=== PATIENT | male | born 1990 | race Caucasian/White ===

== ENCOUNTER → 2021-08-12 07:48 | Outpatient (BNVA) | payer MEDICAID, SELFPAY | PROVIDERS: PCP Nurse Practitioner; Referring Provider Nurse Practitioner; Visit Provider Internal Medicine Gastroenterology ==

== ENCOUNTER 2021-09-13 10:31 | Day surgery (SDC) | payer MEDICAID, SELFPAY ==
[2021-09-07 15:08] VITALS: BMI 34.2
[2021-09-08 14:56] VITALS: BMI 33.4
--- NOTE | 2021-09-10 09:16 | HO.ANESPROP2 ---
Documented by User: Leta Adams NP 09/10/21 09:17 HPI - Anesthesia Eval Consult details Narrative: 30yo M for Upper Endoscopy [facility] Active Problems Active Problems: All Active Problems (Updated 09/08/21 @ 14:55 by Sherin Mcwilliams RN) Hypertension (Acute) GERD (gastroesophageal reflux disease) (Acute) PTSD (post-traumatic stress disorder) (Acute) Anxiety (Acute) Depression (Acute) Past Medical History Medical History Anxiety and depression GERD (gastroesophageal reflux disease) History of esophageal cancer Hypertension PTSD (post-traumatic stress disorder) Family History Family History Maternal Grandmother Diabetes Mother Chronic mental illness Surgical History Surgical History History of esophageal surgery History of esophagogastroduodenoscopy (EGD) Social History Social History Alcohol intake: current Alcohol intake frequency: holidays/special occasions only Patient Tobacco Use Status: Never used Tobacco Use of substances other than those prescribed or required for medical reasons: Yes Substance Use Frequency: Occasionally Have you been hit, kicked, punched, or otherwise hurt by someone within the past year? If so, by whom?: No Are you DNR?: No Advance Directives: No Advance Directives Information Provided: Yes Advance Directives on File: No Meds Allergies Allergy/AdvReac Type Severity Reaction Status Date / Time No Known Allergies Allergy Verified 09/08/21 14:55 Home Medications Medication Instructions Recorded Confirmed Last Taken Type amlodipine 5 mg tablet 5 mg PO DAILY 08/12/21 09/08/21 Unknown History omeprazole 20 mg capsule,delayed 20 mg PO DAILY PRN 09/08/21 09/08/21 Unknown History release Exam Exam Date and Time: September 10, 2021 0916 Height,Weight and Vital Signs: Height 5 ft 8 in Weight 99.79 kg Assessment and Plan Assessment Anesthesia Assessment: Chart Reviewed Documented by User: Becky Larson MD 09/13/21 11:43 PMFSH Past Medical History Medical History Anxiety and depression GERD (gastroesophageal reflux disease) History of esophageal cancer Hypertension PTSD (post-traumatic stress disorder) Family History Family History Maternal Grandmother Diabetes Mother Chronic mental illness Surgical History Surgical History History of esophageal surgery History of esophagogastroduodenoscopy (EGD) History of Problems with Anesthesia: No Social History Social History Alcohol intake: current Alcohol intake frequency: holidays/special occasions only Patient Tobacco Use Status: Never used Tobacco Use of substances other than those prescribed or required for medical reasons: Yes Substance Use Frequency: Occasionally Have you been hit, kicked, punched, or otherwise hurt by someone within the past year? If so, by whom?: No Are you DNR?: No Advance Directives: No Advance Directives Information Provided: Yes Advance Directives on File: No Meds Allergies Allergy/AdvReac Type Severity Reaction Status Date / Time No Known Allergies Allergy Verified 09/08/21 14:55 Home Medications Medication Instructions Recorded Confirmed Last Taken Type amlodipine 5 mg tablet 5 mg PO DAILY 08/12/21 09/08/21 Unknown History omeprazole 20 mg capsule,delayed 20 mg PO DAILY PRN 09/08/21 09/08/21 Unknown History release Exam Airway Mallampati Class: III TM Dist: >3cm Neck ROM: Full Loose/Missing/Broken Teeth: No Heart: RRR Lungs: CTA Assessment and Plan Assessment Anesthesia Assessment: Anesthesia Plan Discussed Final Anesthetic Review History of Problems with Anesthesia: No NPO: Yes ASA Class: II Final Preanesthetic Review: Meds/Allgs Chart Reviewed, Consent Obtained/Reviewed and Anes Risks/Benef Reviewed Patient Risk: Low Procedure Risk: Intermediate Anesthetic Plan Anesthetic Plan: MAC: Disposition: Standard PACU
--- NOTE | 2021-09-13 10:55 | MHC.SHP ---
Pre-Procedural Eval Section A Date of Service: 09/13/21 The patient is an INPATIENT: No The History & Physical has been completed within 30 days and I have reviewed it.: No Section B Chief Complaint: GERD Details of Present Illness: GERD, ? hx of esophageal cancer Relevant Family History (Specify if Yes): No Relevant Social History: None Present Medications: see Short Stay Collaborative assessment Medical History: Significant History (Anxiety and depression GERD (gastroesophageal reflux disease) History of esophageal cancer Hypertension PTSD (post-traumatic stress disorder)) History of Previous Operations: Relevant previous surgery/procedure and date(s) (History of esophageal surgery History of esophagogastroduodenoscopy (EGD)) Allergies: Allergies Allergy/AdvReac Type Severity Reaction Status Date / Time No Known Allergies Allergy Verified 09/08/21 14:55 Review of Systems Sugical H&P ROS: Negative: Constitution, Cardiovascular and Respiratory and Yes, Specify: Gastrointestinal (GERD) Exam Surgical H&P Exam: Normal: Heart, Normal: Lungs, Normal: Extremities and Normal: Abdomen Plan Diagnosis/Plan: Unchanged I have reviewed the history and physical and performed a pertinent physical examination on my patient. No changes have occurred unless specified.
[2021-09-13 11:25] VITALS: BP 154/109; PULSE 71; RESP 18; TEMP 36.8; O2SAT 100
[2021-09-13] MEDS: Lactated Ringers 1,000 ML 100 ML IVCONT (11:45)
--- NOTE | 2021-09-13 11:47 | P.OP_ITS ---
Operative Note Operative Note Date of Service: 09/13/21 Narrative: Pre-op diagnosis: GERD, ? hx of esophageal ca in childhood Post-op diagnosis:?other (GERD, hiatal hernia, gastritis) Procedure: FLEXIBLE TRANSORAL UPPER GASTROINTESTINAL ENDOSCOPY WITH BIOPSIES Consent:?Indications for the procedure and potential complications of bleeding, perforation, reaction to medications and missed diagnosis were discussed with the patient and informed consent was obtained. Instrument:?Olympus GIF H 190 mid size upper endoscope Monitoring: Vital signs and clinical assessment, continuous EKG monitoring, Pulse oximetry, Carbon Dioxide monitoring and blood pressure monitoring were done throughout the procedure. Procedure:?The patient was placed in the left lateral decubitis position and pre-procedure medications were administered and a bite block was placed. The endoscope was inserted into the mouth and advanced under direct vision to the third part of duodenum. A careful inspection was made as the upper endoscope was withdrawn including a retroflexed examination of the proximal stomach; Findings and interventions are described below. Findings: Larynx:? Normal Esophagus: GE junction at 34 cms, small hiatal hernia 34 to 36 cms. Focal healong esophagitis at GE junction. Stomach: Mild gastric erythema. Biopsies were obtained. Grade 2 flap valve on retroflexed examination of the cardia. Duodenum: Normal bulb and descending duodenum Intervention: Biopsies as noted above Impression and Post Procedure Diagnosis: Endoscopy Findings: ESOPHAGUS:? GE junction at 34 cms, small hiatal hernia 34 to 36 cms. Focal healong esophagitis at GE junction. STOMACH:? Mild gastritis - biopsied to check for H Pylori. No evidence of past esophageal surgery or esophageal cancer. (Its possible that pt had a benign papilloma which was removed). Plan: Await pathology results Patient has an appointment on 12/09/21 in the GI Clinic with Alyssa Young M.D. Continue Omeprazole 20 mg daily Above findings were reviewed with the patient and GERD and Hiatal Hernia handouts were given in the discharge area Surgeon: Alyssa Young MD Anesthesia:?MAC (Dr Larson) Was an Sr. Operations Manager used for this Procedure?:?Yes Sr. Operations Manager:?Jose Jones Estimated blood loss (mL):?0 Pathology:?other ( A- ANTRAL BIOPSIES-? H.PYLORI) Condition:?stable Disposition:?PACU
[2021-09-13 12:07] VITALS: BP 141/88; PULSE 98; RESP 18; TEMP 36.8; O2SAT 98
[2021-09-13 12:22] VITALS: BP 141/97; PULSE 81; RESP 18; TEMP 36.7; O2SAT 97
== END 2021-09-13 12:57 | disposition home or self-care (01) ==
PROVIDERS: PCP Nurse Practitioner; Visit Provider Internal Medicine Gastroenterology
PROC: 0DJ08ZZ Inspection of Upper Intestinal Tract, Via Natural or Artificial Opening Endoscopic (ICD-10-PCS; CPT 43235; principal; 2021-09-13 12:00)
DX: K21.9 Gastro-esophageal reflux disease without esophagitis (principal); K29.50 Unspecified chronic gastritis without bleeding; K20.80 Other esophagitis without bleeding; K44.9 Diaphragmatic hernia without obstruction or gangrene; Z85.01 Personal history of malignant neoplasm of esophagus; E66.9 Obesity, unspecified; Z68.34 Body mass index [BMI] 34.0-34.9, adult; Z79.899 Other long term (current) drug therapy
CPT/HCPCS: 43239; 88305; 88342

== ENCOUNTER → 2021-12-09 12:31 | Outpatient (BNVA) | payer MEDICAID, SELFPAY | PROVIDERS: PCP Nurse Practitioner; Referring Provider Nurse Practitioner; Visit Provider Internal Medicine Gastroenterology | DX: K21.9 Gastro-esophageal reflux disease without esophagitis (principal) | CPT/HCPCS: 99212 ==

== ENCOUNTER 2022-12-08 11:49 | Outpatient (REF) | payer MEDICAID, SELFPAY ==
[2022-12-08 12:59] LABS: Hematocrit 41.6 % (42.0-52.0); Hemoglobin 13.8 g/dl (14.0-18.0); Mean Corpuscular HGB Conc 33.2 g/dl (31.0-36.0); Mean Corpuscular Hemoglobin 28.3 pg (27.0-33.0); Mean Corpuscular Volume 85.4 fL (80.0-98.0); Mean Platelet Volume 11.5 fL (9.4-12.4); Platelet Count 217 X10*3/uL (160-400); Red Blood Count 4.87 X10*6/uL (4.60-5.80); Red Cell Distribution Width 12.4 % (11.0-16.0); White Blood Count 7.1 X10*3/uL (4.8-10.8)
[2022-12-08 13:00] LABS: Prothrombin Time 11.2 SEC (10.0-13.1)
[2022-12-08 13:29] LABS: Alanine Aminotransferase 21 U/L (0-40); Albumin Level 4.4 g/dL (3.5-5.0); Alkaline Phosphatase 81 U/L (39-117); Aspartate Amino Transferase 15 U/L (5-37); Bilirubin Direct 0.3 mg/dL (0.0-0.5); Estimated Glomerular Filt Rate > 60; Total Protein 6.8 g/dL (6.5-8.0)
[2022-12-08 14:00] LABS: Folate 16.8 ng/mL (> or = 4.0); Vitamin B12 186 pg/mL (200-900); Vitamin D 25-OH Total 26.3 ng/mL (>30)
[2022-12-09 08:23] LABS: HBS Num1 59.99 mIU/mL (0-7.99); HBc Num1 0.14 S/CO (0.00-0.79); HBsAGNum1 0.33 S/CO (0.00-0.99); Hepatitis B Core Antibody Nonreactive (Nonreactive); Hepatitis B Surface Antigen Negative (Negative); ~HepC Num1 0.41 S/CO (0.00-0.79); ~Hepatitis B Surface Antibody REACTIVE (Nonreactive); ~Hepatitis C Antibody Nonreactive (Nonreactive)
== END 2022-12-08 11:50 | disposition home or self-care (01) ==
LOC: HO.LAB 11:49
PROVIDERS: PCP Nurse Practitioner; Visit Provider Internal Medicine Gastroenterology
DX: K21.9 Gastro-esophageal reflux disease without esophagitis (principal); R79.89 Other specified abnormal findings of blood chemistry; E66.9 Obesity, unspecified; Z79.899 Other long term (current) drug therapy
CPT/HCPCS: 36415; 80076; 82306; 82565; 82607; 82746; 85027; 85610; 86704; 86706; 86803; 87340; 99212

== ENCOUNTER 2022-12-30 10:48 | Outpatient (REF) | payer MEDICAID, SELFPAY ==
--- NOTE | ~2022-12-30 | US_ITS ---
EXAMINATION: US ABDOMEN COMPLETE CLINICAL INFORMATION: Unspecified abnormal findings of blood chemistry. COMPARISON: None available. TECHNIQUE: Real-time imaging of the abdominal viscera. FINDINGS: PANCREAS: Pancreas is limited for evaluation, obscured by bowel gas ABDOMINAL AORTA: The proximal, mid, and distal segments are normal in caliber. INFERIOR VENA CAVA: Visualized portions are normal. LIVER: The liver is normal in size. The liver contour is normal. There is 1.7 x 1.4 x 2.2 cm echogenic lesion consistent with hemangioma in the right lobe of the liver . There is no intrahepatic biliary duct dilatation seen. GALLBLADDER: No calculi seen but small foci of mobile debris. The gallbladder is physiologically distended without evidence of stones, sludge, polyps, wall thickening or pericholecystic fluid. COMMON BILE DUCT: Normal in caliber measuring 0.3 cm in diameter. RIGHT KIDNEY: Normal. No hydronephrosis. No renal calculi or focal parenchymal lesions. The kidney measures 12.0 cm in maximum dimension. LEFT KIDNEY: Normal. No hydronephrosis. No renal calculi or focal parenchymal lesions. The kidney measures 12.2 cm in maximum dimension. SPLEEN: Normal. The spleen measures 11.8 cm in maximum dimension. FREE FLUID: None. US/US abdomen complete IMPRESSION: 1. Hemangioma in the right lobe of the liver. 2. Small foci of mobile debris in the gallbladder. 3. Limited evaluation of pancreas.
== END 2022-12-30 10:49 | disposition home or self-care (01) ==
LOC: HO.US 10:48
PROVIDERS: PCP Registered Nurse; Visit Provider Internal Medicine Gastroenterology
DX: K21.9 Gastro-esophageal reflux disease without esophagitis (principal); R79.89 Other specified abnormal findings of blood chemistry
CPT/HCPCS: 76700

== ENCOUNTER 2023-03-03 15:42 | Outpatient (REF) | payer MEDICAID, SELFPAY ==
[2023-03-03 18:09] LABS: Alanine Aminotransferase 15 U/L (0-40); Albumin Level 4.4 g/dL (3.5-5.0); Alkaline Phosphatase 76 U/L (39-117); Anion Gap 13 (12-20); Aspartate Amino Transferase 12 U/L (5-37); Bilirubin Total 0.8 mg/dL (0.0-1.0); Blood Urea Nitrogen 17 mg/dL (9-16); Calcium 9.6 mg/dL (8.4-10.2); Carbon Dioxide 23 mmol/L (22-29); Chloride 106 mmol/L (96-108); Estimated Glomerular Filt Rate > 60; Glucose Random 85 mg/dL (60-115); Potassium 3.8 mmol/L (3.3-5.1); Sodium 138 mmol/L (135-145); Total Protein 7.2 g/dL (6.5-8.0)
== END 2023-03-03 15:43 | disposition home or self-care (01) ==
LOC: HO.HHCL 15:42
PROVIDERS: Visit Provider Registered Nurse
DX: I10 Essential (primary) hypertension (principal)
CPT/HCPCS: 36415; 80053

== ENCOUNTER 2023-04-07 12:16 | Outpatient (REF) | payer MEDICAID, SELFPAY ==
[2023-04-13 14:43] LABS: Metanephrine, Free 40 pg/mL (<=57); Normetanephrines, Free 90 pg/mL (<=148); Total Metanephrine, Free 130 pg/mL (<=205)
[2023-04-14 17:58] LABS: Aldosterone/Renin Ratio 1.6 Ratio (0.9-28.9); Plasma Renin Activity 1.88 ng/mL/h (0.25-5.82)
[2023-04-15 14:13] LABS: Cortisol, Free 0.36 mcg/dL
[2023-04-15 14:38] LABS: Renin 1.48 ng/mL/h (0.25-5.82)
[2023-04-25 16:04] LABS: Catecholamine Frac, Total 505 pg/mL
== END 2023-04-07 12:17 | disposition home or self-care (01) ==
LOC: HO.HHCL 12:16
PROVIDERS: Visit Provider Registered Nurse
DX: I10 Essential (primary) hypertension (principal)
CPT/HCPCS: 36415; 82088; 82384; 82530; 83835; 84244; 84443

== ENCOUNTER 2023-06-13 | Outpatient (REF) | payer MEDICAID, SELFPAY | END 2023-06-13 00:01 | disposition home or self-care (01) | LOC: HO.HHCLNP | PROVIDERS: Visit Provider Nurse Practitioner Family | DX: R30.9 Painful micturition, unspecified (principal) | CPT/HCPCS: 87086 ==

== ENCOUNTER 2023-07-19 09:21 | Outpatient (REF) | payer OTHER, SELFPAY ==
--- NOTE | ~2023-07-19 | CT_ITS ---
EXAMINATION: CT UROGRAM WITHOUT AND WITH CONTRAST CLINICAL INFORMATION: Gross hematuria. COMPARISON: No pertinent prior examinations are available for comparison. TECHNIQUE: Noncontrast helical scanning was performed with submillimeter collimation through the abdomen and pelvis. Postcontrast helical scanning was then repeated with submillimeter collimation through the abdomen and pelvis in the pyelographic/urographic phase using split dose technique with 85 mL of Omnipaque 350 intravenous contrast. Sagittal and coronal 2-D reconstructions were obtained. 3D POSTPROCESSING: Multiple 3-D volumetric and CPR images were processed from the initial data set by the [facility] on an independent workstation under concurrent physician supervision. This CT examination was performed using dose optimization techniques as appropriate, variously including the following: *Automated exposure control *Adjustment of mA and/or kV according to patient size (this includes techniques or standardized protocols for targeted exams where dose is matched to indication/reason for exam; i.e. extremities or head) *Use of iterative reconstruction technique DLP: 837 mGycm FINDINGS: KIDNEYS, URETERS, BLADDER: Specific attention was given to the kidneys, ureters, and bladder. The right kidney measures 11.1 cm in size and the left kidney measures 12.0 cm in size. NONCONTRAST: No radiopaque nephrolithiasis. POSTCONTRAST NEPHROGRAPHIC/UROGRAPHIC: Symmetric contrast enhancement. Symmetric urinary excretion. No focal bladder mass. The collecting systems appear normal. No hydroureteronephrosis. BLADDER: Contrast layering artifact in the urinary bladder. No discrete bladder mass or focal bladder thickening. PELVIC VISCERA: Prostate appears normal. OTHER: LUNG BASES: The visualized lung bases are unremarkable. LIVER, GALLBLADDER, AND BILIARY TREE: Nonspecific hypodense nonsimple lesion in the medial aspect of segment 6 along Morison's pouch. Most likely hemangioma but this is not definite by imaging as this protocol is not adequate for liver lesion evaluation. Otherwise the liver appears normal. The gallbladder is unremarkable. PANCREAS: No discrete mass or ductal dilatation. SPLEEN: Unremarkable. ADRENAL GLANDS: No adrenal mass. GASTROINTESTINAL TRACT: The small bowel is normal in caliber. The appendix appears normal. Colonic diverticulosis without evidence of diverticulitis. ABDOMINAL WALL: No significant hernia is appreciated. LYMPH NODES: No lymphadenopathy. VASCULAR: No aortic aneurysm. OSSEOUS STRUCTURES: Mild degenerative disc disease at L5-S1. CT/CT urogram IMPRESSION: Normal CT urogram. No nephrolithiasis. No renal mass. No hydroureteronephrosis. No discrete bladder mass. Nonspecific 1.4 cm hypoattenuating nonsimple lesion in segment 6 of the liver. In the absence of a personal history of malignancy and/or chronic liver disease this is most likely hemangioma. Recommend clinical correlation and follow-up with liver ultrasound.
[2023-07-19] MEDS: iohexoL 350 MG/ML 100 ML INFUS..BTL IV (10:19)
== END 2023-07-19 09:22 | disposition home or self-care (01) ==
LOC: HO.CT 09:21
PROVIDERS: PCP Registered Nurse; Visit Provider Nurse Practitioner Family
DX: R31.0 Gross hematuria (principal)
CPT/HCPCS: 74178; Q9967

== ENCOUNTER 2023-10-30 10:59 | Outpatient (REF) | payer OTHER, SELFPAY ==
--- NOTE | ~2023-10-30 | US_ITS ---
EXAMINATION: US ABDOMEN COMPLETE CLINICAL INFORMATION: Liver lesion. COMPARISON: CT urogram 07/19/2023. Ultrasound abdomen complete 12/30/2022. TECHNIQUE: Real-time imaging of the abdominal viscera. FINDINGS: PANCREAS: Normal. ABDOMINAL AORTA: The proximal, mid, and distal segments are normal in caliber. INFERIOR VENA CAVA: Visualized portions are normal. LIVER: The liver is normal in size. The liver contour is normal. Parenchymal echogenicity is normal. 6 mm well-circumscribed hyperechoic lesion in the superior left lobe and 2.5 cm well-circumscribed hyperechoic lesion in the medial right hepatic lobe. There is no intrahepatic biliary duct dilatation seen. GALLBLADDER: The gallbladder is physiologically distended without evidence of stones, sludge, polyps, wall thickening or pericholecystic fluid. COMMON BILE DUCT: Normal in caliber measuring 0.3 cm in diameter. RIGHT KIDNEY: Normal. No hydronephrosis. No renal calculi or focal parenchymal lesions. The kidney measures 11.4 cm in maximum dimension. LEFT KIDNEY: Normal. No hydronephrosis. No renal calculi or focal parenchymal lesions. The kidney measures 11.6 cm in maximum dimension. SPLEEN: Normal. The spleen measures 11.4 cm in maximum dimension. FREE FLUID: None. US/US abdomen complete IMPRESSION: Findings consistent with hepatic hemangiomas. No follow-up imaging is recommended.
== END 2023-10-30 11:00 | disposition home or self-care (01) ==
LOC: HO.US 10:59
PROVIDERS: PCP Registered Nurse; Visit Provider Nurse Practitioner Family
DX: R93.2 Abnormal findings on diagnostic imaging of liver and biliary tract (principal)
CPT/HCPCS: 76700

== ENCOUNTER 2024-01-31 10:50 | Outpatient (AMB) | payer OTHER, SELFPAY ==
--- NOTE | 2024-01-31 10:54 | MHC.PC.OV ---
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- amlodipine 5 mg PO DAILY olmesartan 20 mg PO DAILY omeprazole 20 mg PO DAILY 90 days prazosin 1 mg PO BEDTIME Tobacco use date assessed: 01/31/24 Dental Screening Dental Screen Date: 01/31/24 Did you have a dental visit in the last 12 months?: Yes Did you have a dental problem in the last 6 months where you did not have access to dental care?: No Was dental information given to patient?: Patient has dentist HPI HPI Comments History of Present Illness Details 33-year-old male with anemia, MDD, generalized anxiety disorder, GERD with esophagitis, hiatal hernia, hypertension, vitamin-D deficiency, B12 deficiency, hepatic hemangiomas (abdominal ultrasound 2023 no additional imaging required) Status post EGD 09/13/2021 Health Maintenance: ? Colon ? PSA ? Tdap thinks UTD Specialists: GI - not routinely ff'd Renal Counseling Here today to establish care. Old records available to me reviewed prior to today's visit. ED visit 1 month ago as he was having pain in chest, worried he was having a heart attack. Reports was w/o HTN meds while in between PCPs. Now back on meds and taking as directed Has never been evaled by Renal. Referral placed today. Lesion on right side of nose - present for years, wonders if normal, unsure about insurance coverage for Derm. Will wait at this time. MDD/ROBERT - extensive childhood trauma, Mom killed herself. Interested in referral to counseling. NN referral placed today & brief intervention done. Does not want meds today as he feels this contributed to Mom killing self. Currently contracts for safety. Plan Check routine screening labs today. Normal, LDL pending. Refer to counseling Continue blood pressure medications. Refer to renal to evaluate origin of hypertension. Return to office in 3-4 weeks to review labs and for complete physical exam. Sooner as needed. [facility] Medical History Hypertension Depression Anxiety PTSD (post-traumatic stress disorder) GERD (gastroesophageal reflux disease) Surgical History History of esophageal surgery History of esophagogastroduodenoscopy (EGD) Family History Maternal Grandmother Diabetes Mother Chronic mental illness Social History Housing: Apartment Alcohol intake: current Alcohol intake frequency: holidays/special occasions only Patient Tobacco Use Status: Never used Tobacco e-Cigarette/Vaping Use: Never Used service: No Current occupational status: employed Current occupation: [employer] Cognitive needs: No Hearing needs: Yes Vision needs: Yes Questionnaire PHQ-9 Over the last 2 weeks, how often have you been bothered by any of the following problems? 1. Little interest or pleasure in doing things: more than half the days 2. Feeling down, depressed, or hopeless: several days 3. Trouble falling or staying asleep, or sleeping too much: more than half the days 4. Feeling tired or having little energy: several days 5. Poor appetite or overeating: several days 6. Feeling bad about yourself - or that you are a failure or have let yourself or your family down: nearly every day 7. Trouble concentrating on things, such as reading the newspaper or watching television: several days 8. Moving or speaking so slowly that other people could have noticed. Or the opposite - being so fidgety or restless that you have been moving around a lot more than usual: more than half the days 9. Thoughts that you would be better off or of hurting yourself in some way: several days Total score: 14 Depression Screening Interpretation: Positive Depression Screening Follow-up: Existing condition and Follow-up Visit Requested Depression Screening Done: Yes 66321 - PHQ-9 Billing: Yes Source: Developed by Drs. Ruddy Chung, Kimberly Umana, Oniel Wilburn and colleagues, with an educational liz from [employer] Thrive Questionnaire Date Thrive assessed: 01/31/24 I am a: Patient What is your living situation today?: I have a steady place to live Within the past 12 months, did the food you bought not last and you didn't have the money to get more?: Never true Within the past 12 months, did you worry whether your food would run out before you got money to buy more?: Never true Do you have trouble paying for medicines?: No Do you have trouble getting transportation to medical appointments?: No Do you have trouble paying your heating and electricity bill?: No Do you have trouble taking care of your child, family member or friend?: No Do you have trouble with day-to-day activities such as bathing, preparing meals, shopping, managing finances, etc.?: No Are you currently unemployed and looking for a job?: No Are you interested in more education?: No Please select the resources that you would like help with: None Currently or been in a relationship where the following occur: no concerns reported THRIVE Score: 0 AUDIT C Alcohol Use Questionnaire (AUDIT-C) 1. How often do you have a drink containing alcohol?: Monthly or less 2. How many drinks containing alcohol do you have on a typical day when you are drinking?: 1 or 2 3. How often do you have six or more drinks on one occasion?: Never Total Score: 1 Score Reviewed/Action Taken: Yes ROBERT-7 AMB Questionnaire ROBERT-7 Date ROBERT - 7 assessed: 01/31/24 Feeling nervous, anxious, or on edge: 2 = More than half the days Not being able to stop or control worryin = Several days Worrying too much about different things: 1 = Several days Trouble relaxin = Several days Becoming easily annoyed or irritable: 0 = Not at all Feeling afraid as if something awful might happen: 2 = More than half the days Source: Developed by Drs. Ruddy Chung, Kimberly Umana, Oniel Wilburn and colleagues, with an educational liz from [employer] ROBERT-7 Assessment Billing ROBERT-7 Assessment Tool: ORBERT-7 Assessment 72152 Review of Systems Const All systems reviewed & are unremarkable except as noted in HPI and below Physical exam (Primary Care) Vital Signs: Last Vital Signs Temp 97 F 01/31/24 10:55 Pulse 55 01/31/24 10:55 Resp 14 01/31/24 10:55 BP 130/80 01/31/24 10:55 Pulse Ox 99 01/31/24 10:55 Oxygen Delivery Method Room Air 01/31/24 10:55 BMI result Body Mass Index 30.6 BMI Assessment/Plan discussion: High BMI High, discussed plan: lifestyle Tobacco/Smoking Status: Tobacco use Status Tobacco use date assessed 01/31/24 01/31/24 11:08 Patient Tobacco Use Status Never used Tobacco 01/31/24 11:08 e-Cigarette/Vaping Use Never Used 01/31/24 11:08 PHQ-9: PHQ-9 Score PHQ-9: Total score 14 01/31/24 11:17 Depression Screening Interpretation: Positive Depression Screening Follow-up: Existing condition and Follow-up Visit Requested Thrive Assessment: Date of Thrive Assessment Date Thrive assessed 01/31/24 01/31/24 11:08 Currently or been in a relationship where the following occur: no concerns reported Const Other: Awake alert oriented, soft-spoken Mood and affect appropriate Regular rate and rhythm Lung sounds clear to auscultation bilat No edema bilateral lower extremities Assessment and Plan Assessment & Plan (1) Hypertension: Code(s): I10 - Essential (primary) hypertension Qualifiers: Hypertension type: unspecified Qualified Code(s): I10 - Essential (primary) hypertension (2) MDD (major depressive disorder), recurrent episode: Code(s): F33.9 - Major depressive disorder, recurrent, unspecified Qualifiers: Major depression episode severity: moderate Qualified Code(s): F33.1 - Major depressive disorder, recurrent, moderate (3) ROBERT (generalized anxiety disorder): Code(s): F41.1 - Generalized anxiety disorder (4) GERD (gastroesophageal reflux disease): Comment: 09/13/21 EGD SHOWED: ESOPHAGUS:? GE junction at 34 cms, small hiatal hernia 34 to 36 cms. Focal healing esophagitis at GE junction. No evidence of past esophageal surgery or esophageal cancer. (Its possible that pt had a benign papilloma which was removed endoscopically with snare polypectomy) STOMACH:? Mild gastritis - biopsied were negative for H Pylori. Plan: Continue Omeprazole 20 mg daily Code(s): K21.9 - Gastro-esophageal reflux disease without esophagitis Qualifiers: Esophagitis presence: with esophagitis Esophagitis bleeding: without hemorrhage Qualified Code(s): K21.00 - Gastro-esophageal reflux disease with esophagitis, without bleeding (5) Elevated LFTs: Comment: LFTs normal today. Code(s): R79.89 - Other specified abnormal findings of blood chemistry (6) Anemia: Comment: Resolved based on labs today. Code(s): D64.9 - Anemia, unspecified Qualifiers: Anemia type: unspecified type Qualified Code(s): D64.9 - Anemia, unspecified (7) Class 1 obesity with serious comorbidity and body mass index (BMI) of 30.0 to 30.9 in adult: Comment: BMI greater than 30 with hypertension Code(s): E66.9 - Obesity, unspecified; Z68.30 - Body mass index [BMI] 30.0-30.9, adult Qualifiers: Obesity type: due to excess calories Qualified Code(s): E66.09 - Other obesity due to excess calories; Z68.30 - Body mass index [BMI] 30.0-30.9, adult Plan This note is constructed using voice recognition software. While every effort has been made to ensure accuracy in toe former stitchdowns, still errors may have been included Sometimes, these errors may affect the content or meaning of the given sentence . Total time spent caring for the patient today was 41 minutes. This includes time spent before the visit reviewing the chart, time spent during the visit, and time spent after the visit on documentation Orders: Orders Hemoglobin A1c Today D64.9 - Anemia, unspecified, I10 - Essential (primary) hypertension, K21.9 - Gastro-esophageal reflux disease without esophagitis, R79.89 - Other specified abnormal findings of blood chemistry LDL Cholesterol Direct Today D64.9 - Anemia, unspecified, I10 - Essential (primary) hypertension, K21.9 - Gastro-esophageal reflux disease without esophagitis, R79.89 - Other specified abnormal findings of blood chemistry TSH reflex Free T4 Today D64.9 - Anemia, unspecified, I10 - Essential (primary) hypertension, K21.9 - Gastro-esophageal reflux disease without esophagitis, R79.89 - Other specified abnormal findings of blood chemistry Vitamin B12 and Folate Today D64.9 - Anemia, unspecified, I10 - Essential (primary) hypertension, K21.9 - Gastro-esophageal reflux disease without esophagitis, R79.89 - Other specified abnormal findings of blood chemistry Vitamin D 1,25 dihydroxy Today D64.9 - Anemia, unspecified, I10 - Essential (primary) hypertension, K21.9 - Gastro-esophageal reflux disease without esophagitis, R79.89 - Other specified abnormal findings of blood chemistry Comprehensive Met. Panel Today D64.9 - Anemia, unspecified, I10 - Essential (primary) hypertension, K21.9 - Gastro-esophageal reflux disease without esophagitis, R79.89 - Other specified abnormal findings of blood chemistry Complete Blood Count no Diff Today D64.9 - Anemia, unspecified, I10 - Essential (primary) hypertension, K21.9 - Gastro-esophageal reflux disease without esophagitis, R79.89 - Other specified abnormal findings of blood chemistry IRON PROFILE Today D64.9 - Anemia, unspecified, I10 - Essential (primary) hypertension, K21.9 - Gastro-esophageal reflux disease without esophagitis, R79.89 - Other specified abnormal findings of blood chemistry Microalbumin, Random (w Creat) Today D64.9 - Anemia, unspecified, I10 - Essential (primary) hypertension, K21.9 - Gastro-esophageal reflux disease without esophagitis, R79.89 - Other specified abnormal findings of blood chemistry UA and rflx microscopic Today D64.9 - Anemia, unspecified, I10 - Essential (primary) hypertension, K21.9 - Gastro-esophageal reflux disease without esophagitis, R79.89 - Other specified abnormal findings of blood chemistry Referrals Nephrology Referral I10 - Essential (primary) hypertension Nurse Navigator Referral F33.9 - Major depressive disorder, recurrent, unspecified, F41.1 - Generalized anxiety disorder Medications: New amlodipine 5 mg PO DAILY 90 tabs 0RF olmesartan 20 mg PO DAILY 90 tabs 0RF prazosin 1 mg PO BEDTIME 90 caps 0RF Refilled omeprazole 20 mg PO DAILY 90 caps 2RF Acid Reflux 90 days K21.9 - Gastro-esophageal reflux disease without esophagitis Patient Instructions: Return to the office in 3-4 weeks to review labs and for a complete physical exam, sooner as needed. Plan Check routine screening labs today. Labs today are normal. Vitamin-D a direct LDL are pending at the time of the close this note. Refer to counseling Continue blood pressure medications. Refer to renal to evaluate origin of hypertension. Return to office in 3-4 weeks to review labs and for complete physical exam. Sooner as needed. Walk-In Care (Urgent Care): We Make it Easy Walk-in for urgent medical issues such as: ? Seasonal Allergies ? Insect Bites ? Cough ? Diarrhea ? Acute Asthma Attacks ? Back, Knee or Joint Pain ? Ear Infection ? Fever without a Rash ? Headaches ? Nausea ? [place] Eye, Rash or Skin Irritation ? Sore Throat ? Sports Physicals ? Vomiting Most insurances are accepted. Patients do not need to be part of the [facility] to seek care at the walk-in clinic. Locations [address] [facility] , [place] [address] ? [phone] [facility] in [place] provides services to ages 18 and over. Open Monday-Monday: 8 a.m. to 5 p.m. and Monday: 9 a.m. to 3 p.m.* *Hours may vary due to staffing availability. To confirm Walk-In Care hours in [place], please call [phone]. [address] [place] [address] ? [phone] [facility] [place] provides services to ages 12 and over. Open Monday-Monday: 8 a.m. to 5 p.m. Hours may vary due to staffing availability. To confirm Walk-In Care hours in [place], please call [phone]. LABORATORY SERVICES: [facility] Lab ? Primary Location [address] [place] [address] Monday through Monday 6:00 AM ? 5:00 PM Monday 7:00 AM ? 11:00 AM* [phone] The [facility] Lab is centrally located near the front entrance of the Medical Center for easy outpatient access. Convenient parking is provided for outpatients. *Hours may vary due to staffing availability. To confirm Laboratory hours for any location, please call [phone]. Offsite Location For your convenience, we offer offsite laboratory draw stations at the following locations: [address] [place] [address] [address], [address], [place] Monday through Monday 7:30 AM ? 1:00 PM* [phone] *Hours may vary due to staffing availability. To confirm Laboratory hours for any location, please call [phone]. [place] ? [facility] [address] [facility] [facility] Monday through Monday 6:00 AM ? 3:30 PM* Monday 6:30 AM ? 3 PM* [phone] *Hours may vary due to staffing availability. To confirm Laboratory hours for any location, please call [phone] [place] [address] Monday through Monday 7:30 AM ? 4:00 PM* [phone] *Hours may vary due to staffing availability. To confirm Laboratory hours for any location, please call [phone] [place] [address] Monday through 9:00 AM ? 4:00 PM* *Hours may vary due to staffing availability. To confirm Laboratory hours for any location, please call [phone]. Appointments are not necessary. Walk-ins are welcome. Like all the departments throughout the [facility], our Lab undergoes frequent reviews to ensure the quality and accuracy of test results, and our staff takes special pride in its status as a nationally accredited facility. Patient Portal: ONE PATIENT. ONE RECORD. BETTER CARE. [facility] has a fully integrated, cutting-edge mobile electronic health information system that has revolutionized the way we care for our patients and manage our organization. This system improves communication and coordination enabling us to provide safe, higher-quality care, and an overall positive experience for staff and patients. Our first priority, as always, is to deliver the highest quality care possible. The system is running in the background supporting that priority. This portal is for all [facility] services and practices. If you are experiencing any technical difficulties with enrolling or logging into the Patient Portal please complete the [facility] Patient Portal Technical Support Form. [facility] now offers a new secure on-line interactive tool for patients to review their health information ? ?Patient Portal. This interactive web portal will enable patients and their families to take an active role in their care by providing easy, secure access to their health information via the internet. The Patient Portal provides patients with instant access to their health information, including laboratory results, medications, allergies, demographic information, visit history, and more. In addition to managing their own care, parents and health care proxies with authorized consent will appreciate the ability to access the records of those individuals for whom they provide care. Please note: if you wish to gain access (Proxy) to another patient?s portal, you will be required to come to the Medical Records Department in person at [facility]. Both the patient giving proxy access and the proxy will need to provide photo identification and complete the appropriate authorization. The Patient Portal also allows track their appointments online. The [facility] Patient Portal also saves patients time by allowing them to submit updates to their demographic and contact information prior to their visits. Portal email notifications will also alert patients to any new activity on their portal, such as test results and new appointments. In order to initially enroll in the [facility] Patient Portal, you will need to enter some required information including the following: your [facility] Medical Record number your personal home email address name date of Please note: In order to enroll in the [facility] Patient Portal, we need to have your email address on file in your electronic medical record. ?The email address needs to be specific for one person (yourself) in order for your Portal enrollment to be successful. ?You can update your email address in person with our Registration staff when you are registering for a hospital visit. ?Otherwise, you will need to come to the Health Information Management (Medical Records) Department at [facility]. ?We are open from Monday ? Monday from 7:30 a.m. ? 4:30 p.m. ?You will be required to present a photo id. Once you have successfully enrolled in the Patient Portal, you will receive a one-time user id and password for the Portal, sent to your email address. ?This will allow you to log into the Patient Portal within 99 hrs and reset your own logon id and password, and define personal security questions. ?Once your permanent login and password have been set, you can log into the [facility] Patient Portal at any time via the blue button above or from the Portal Logon button on any page of the [facility] website. [facility] encourage all of our patients to enroll in Patient Portal as it presents a valuable opportunity for patients and their families to actively participate in their care and stay healthy Welcome to [facility]. ?We look forward to working with you. Coding Level of Care Code New Pt Level 4 (45945) Diagnoses Hypertension, unspecified type I10 Hypertension type: unspecified Moderate episode of recurrent major depressive disorder F33.1 Major depression episode severity: moderate ROBERT (generalized anxiety disorder) F41.1 Gastroesophageal reflux disease with esophagitis without hemorrhage K21.00 Esophagitis presence: with esophagitis Esophagitis bleeding: without hemorrhage Elevated LFTs R79.89 Anemia, unspecified type D64.9 Anemia type: unspecified type Class 1 obesity due to excess calories with serious comorbidity and body mass index (BMI) of 30.0 to 30.9 in adult E66.09; Z68.30 Obesity type: due to excess calories Additional Codes ROBERT-7 Assessment Billing - ROBERT-7 Assessment Tool: ROBERT-7 Assessment 25802 ([id number])
[2024-01-31 10:55] VITALS: BP 130/80; PULSE 55; RESP 14; TEMP 36.1; O2SAT 99; BMI 30.6
== END 2024-01-31 11:52 | disposition home or self-care (01) ==
PROVIDERS: PCP Nurse Practitioner Family; Visit Provider Nurse Practitioner Family
DX: I10 Essential (primary) hypertension (principal); F33.1 Major depressive disorder, recurrent, moderate; F41.1 Generalized anxiety disorder; K21.00 Gastro-esophageal reflux disease with esophagitis, without bleeding; R79.89 Other specified abnormal findings of blood chemistry; D64.9 Anemia, unspecified; E66.09 Other obesity due to excess calories; Z68.30 Body mass index [BMI] 30.0-30.9, adult
CPT/HCPCS: 99204

== ENCOUNTER 2024-01-31 11:38 | Outpatient (REF) | payer OTHER, SELFPAY ==
[2024-01-31 13:55] LABS: Appearance Urine Clear; Color Urine Yellow; Glucose Urine UA Negative (Negative); Leukocyte Esterase Urine Negative (Negative); Nitrite Urine Negative (Negative); Specific Gravity - Urine >= 1.030 (1.005-1.025); Urine Blood Negative (Negative); Urine Ketones Negative (Negative); Urine Protein Negative (Neg-Trace)
[2024-01-31 13:56] LABS: Hematocrit 40.6 % (42.0-52.0); Hemoglobin 14.1 g/dl (14.0-18.0); Mean Corpuscular HGB Conc 34.7 g/dl (31.0-36.0); Mean Corpuscular Hemoglobin 30.1 pg (27.0-33.0); Mean Corpuscular Volume 86.6 fL (80.0-98.0); Mean Platelet Volume 11.7 fL (9.4-12.4); Platelet Count 200 X10*3/uL (160-400); Red Blood Count 4.69 X10*6/uL (4.60-5.80); Red Cell Distribution Width 12.4 % (11.0-16.0); White Blood Count 6.7 X10*3/uL (4.8-10.8)
[2024-01-31 14:03] LABS: Estimated Average Glucose 105 mg/dL; Hemoglobin A1c % 5.3 % (<6.0)
[2024-01-31 14:17] LABS: Creatinine Urine 232.99 mg/dL; Microalbum/Creatinine Ratio Ur 6.8 ug/mg cr (<30)
[2024-01-31 14:22] LABS: Alanine Aminotransferase 20 U/L (0-40); Albumin Level 4.4 g/dL (3.5-5.0); Alkaline Phosphatase 67 U/L (39-117); Anion Gap 9 (12-20); Aspartate Amino Transferase 13 U/L (5-37); Bilirubin Total 0.4 mg/dL (0.0-1.0); Blood Urea Nitrogen 18 mg/dL (9-16); Calcium 9.5 mg/dL (8.4-10.2); Carbon Dioxide 25 mmol/L (22-29); Chloride 111 mmol/L (96-108); Estimated Glomerular Filt Rate > 60; Glucose Random 96 mg/dL (60-115); Iron 79 mcg/dL (45-160); Percent Iron Saturation 30 % (15-50); Potassium 3.6 mmol/L (3.3-5.1); Sodium 141 mmol/L (135-145); Total Iron Binding Capacity 263 mcg/dL (228-428); Total Protein 7.2 g/dL (6.5-8.0); Unsaturated Iron Binding 184 ug/dL
[2024-01-31 14:24] LABS: TSH reflex Free T4 1.04 uIU/mL (0.32-4.0)
[2024-01-31 14:37] LABS: Folate 11.2 ng/mL (> or = 4.0); Vitamin B12 231 pg/mL (200-900)
[2024-02-01 17:38] LABS: LDL Cholesterol Direct 133 mg/dL (<100)
[2024-02-04 06:03] LABS: VITAMIN D (1,25 OH) D3 41 pg/mL; Vit D (1,25-Dihydroxy) Total 41 pg/mL (18-72); Vitamin D (1,25 OH) D2 <8 pg/mL
== END 2024-01-31 11:39 | disposition home or self-care (01) ==
LOC: HO.WFDLDS 11:38
PROVIDERS: Visit Provider Nurse Practitioner Family
DX: I10 Essential (primary) hypertension (principal); D64.9 Anemia, unspecified; R79.89 Other specified abnormal findings of blood chemistry; K21.9 Gastro-esophageal reflux disease without esophagitis
CPT/HCPCS: 36415; 80053; 81003; 82043; 82570; 82607; 82652; 82746; 83036; 83540; 83721; 84443; 85027

== ENCOUNTER 2024-02-06 13:55 | Outpatient (AMB) | payer OTHER, SELFPAY ==
[2024-02-06 13:59] VITALS: BP 134/82; PULSE 52; O2SAT 98; BMI 30.9
--- NOTE | 2024-02-06 13:59 | HO.NEPHOV ---
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 He was on medication for a while then he stopped taking his medication due to insurance issues and he did not have PCP. He has been on amlodipine for quite some time. About a year ago VASQUEZ inhibitor has been added. He has been referred for evaluation and management of hypertension. Eriberto has a history of gross hematuria which was painless. He underwent CT urogram which was unremarkable. He did not have urologic evaluation at the time. 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 Cognitive needs: No Hearing needs: Yes Vision needs: Yes Review of Systems Const Denies fever(s) and Denies weight loss Card Denies chest pain Resp Denies cough and Denies hemoptysis GI Denies abdominal pain, Denies diarrhea and Denies nausea Musc Denies back pain Neuro Denies focal weakness Physical Exam Vital Signs: Last Vital Signs Pulse 52 02/06/24 13:59 BP 134/82 02/06/24 13:59 Pulse Ox 98 02/06/24 13:59 Oxygen Delivery Method Room Air 02/06/24 13:59 BMI result Body Mass Index 30.9 Const General: comfortable; No acute distress Orientation/consciousness: patient oriented x3 Eyes General: appearance normal, both eyes and all related structures Visual Alves: normal visual alves by confrontation Neck Neck: Yes supple and Yes no JVD Resp Effort & Inspection: normal respiratory effort and respiratory effort not decreased Auscultation: rhonchi Cardio Palpation: no palpable S3 and no palpable S4 Heart sounds: no rubs GI Inspection: Yes normal to inspection Palpation (GI): Soft to palpation Percussion: Yes normal to percussion Auscultation: normal bowel sounds General: Yes no CVA tenderness Back/Spine/Pelvis Back: no CVA tenderness Skin General skin exam: no petechiae and no purpura Neuro General: patient oriented x3 and no focal motor deficits Extrem General: No clubbing and No edema Results Reviewed Nephrology Results: Hgb 14.1 g/dl (14.0-18.0) 01/31/24 WBC 6.7 X10*3/uL (4.8-10.8) 01/31/24 Plt Count 200 X10*3/uL (160-400) 01/31/24 Sodium 141 mmol/L (135-145) 01/31/24 Potassium 3.6 mmol/L (3.3-5.1) 01/31/24 Chloride 111 mmol/L (96-108) H 01/31/24 Carbon Dioxide 25 mmol/L (22-29) 01/31/24 BUN 18 mg/dL (9-16) H 01/31/24 Creatinine 0.82 mg/dL (0.5-1.4) 01/31/24 Calcium 9.5 mg/dL (8.4-10.2) 01/31/24 Urine Protein Negative mg/dL (Neg-Trace) 01/31/24 Urine Creatinine 232.99 mg/dL 01/31/24 Assessment & Plan Assessment & Plan (1) Hypertension: Code(s): I10 - Essential (primary) hypertension Category: Medical Qualifiers: Hypertension type: unspecified Qualified Code(s): I10 - Essential (primary) hypertension Plan 33-year-old man with hypertension. Renal function is normal at this time. Serum electrolytes were normal. With the current regimen blood pressure is well controlled therefore I will wait another couple of weeks to reassess his blood pressure. I have asked him to keep monitoring his blood pressure at home. If home blood pressure readings are elevated I will obtain a 24 hour ambulatory blood pressure monitoring. Renal function is stable. Urinalysis was benign without any protein or blood. Urine specific gravity was elevated primarily due to volume depletion I have encouraged him to increase his p.o. fluid intake. He should continue with a low-salt diet given the history of hypertension. He has a history of gross hematuria. But imaging study was unremarkable at the time. If it happens again he would require further urological evaluation. Orders: Orders Creatinine Urine 4 Weeks I10 - Essential (primary) hypertension Total Protein Urine Random 4 Weeks I10 - Essential (primary) hypertension UA and rflx microscopic 4 Weeks I10 - Essential (primary) hypertension Coding Level of Care Code New Pt Level 4 (42261) Diagnoses Hypertension, unspecified type I10 Hypertension type: unspecified
== END 2024-02-06 14:18 | disposition home or self-care (01) ==
PROVIDERS: PCP Nurse Practitioner Family; Referring Provider Nurse Practitioner Family; Visit Provider Internal Medicine Hypertension Specialist
DX: I10 Essential (primary) hypertension (principal)
CPT/HCPCS: 99204

== ENCOUNTER → 2024-02-06 13:55 | Outpatient (BNVA) | payer OTHER, SELFPAY | PROVIDERS: PCP Nurse Practitioner Family; Referring Provider Nurse Practitioner Family; Visit Provider Internal Medicine Hypertension Specialist | DX: I10 Essential (primary) hypertension (principal) | CPT/HCPCS: 99202 ==

== ENCOUNTER 2024-03-04 14:49 | Outpatient (REF) | payer OTHER, SELFPAY ==
[2024-03-04 17:43] LABS: Appearance Urine Clear; Color Urine Yellow; Glucose Urine UA Negative (Negative); Leukocyte Esterase Urine Negative (Negative); Nitrite Urine Negative (Negative); PH 5.5 (5.0-9.0); Specific Gravity - Urine 1.025 (1.005-1.025); Urine Blood Negative (Negative); Urine Ketones Negative (Negative); Urine Protein Negative (Neg-Trace)
[2024-03-04 18:14] LABS: Creatinine Urine 187.59 mg/dL; Total Protein Urine Random 12 mg/dL (<12)
== END 2024-03-04 14:50 | disposition home or self-care (01) ==
LOC: HO.WFDLDS 14:49
PROVIDERS: Visit Provider Internal Medicine Hypertension Specialist
DX: I10 Essential (primary) hypertension (principal)
CPT/HCPCS: 81003; 82570; 84156

== ENCOUNTER 2024-03-05 11:41 | Outpatient (AMB) | payer OTHER, SELFPAY ==
[2024-03-05 11:43] VITALS: BP 144/82; PULSE 59; O2SAT 98; BMI 31.0
--- NOTE | 2024-03-05 11:43 | HO.NEPHOV_ITS ---
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 He was on medication for a while then he stopped taking his medication due to insurance issues and he did not have PCP. He has been on amlodipine for quite some time. About a year ago VASQUEZ inhibitor has been added. He has been referred for evaluation and management of hypertension. Eriberto has a history of gross hematuria which was painless. He underwent CT urogram which was unremarkable. He did not have urologic evaluation at the time. 03/05/2024. Blood pressure has been suboptimal. 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 Cognitive needs: No Hearing needs: Yes Vision needs: Yes Physical Exam Vital Signs: Last Vital Signs Pulse 59 03/05/24 11:43 BP 144/82 H 03/05/24 11:43 Pulse Ox 98 07/23/24 11:43 Oxygen Delivery Method Room Air 03/05/24 11:43 BMI result Body Mass Index 31.0 Const General: comfortable; No acute distress Orientation/consciousness: patient oriented x3 Eyes General: appearance normal, both eyes and all related structures Visual Alves: normal visual alves by confrontation Neck Neck: Yes supple and Yes no JVD Resp Effort & Inspection: normal respiratory effort and respiratory effort not decreased Auscultation: rhonchi Cardio Palpation: no palpable S3 and no palpable S4 Heart sounds: no rubs GI Inspection: Yes normal to inspection Palpation (GI): Soft to palpation Percussion: Yes normal to percussion Auscultation: normal bowel sounds General: Yes no CVA tenderness Back/Spine/Pelvis Back: no CVA tenderness Skin General skin exam: no petechiae and no purpura Neuro General: patient oriented x3 and no focal motor deficits Extrem General: No clubbing and No edema Results Reviewed Nephrology Results: Hgb 14.1 g/dl (14.0-18.0) 01/31/24 WBC 6.7 X10*3/uL (4.8-10.8) 01/31/24 Plt Count 200 X10*3/uL (160-400) 01/31/24 Sodium 141 mmol/L (135-145) 01/31/24 Potassium 3.6 mmol/L (3.3-5.1) 01/31/24 Chloride 111 mmol/L (96-108) H 01/31/24 Carbon Dioxide 25 mmol/L (22-29) 01/31/24 BUN 18 mg/dL (9-16) H 01/31/24 Creatinine 0.82 mg/dL (0.5-1.4) 01/31/24 Calcium 9.5 mg/dL (8.4-10.2) 01/31/24 Urine Protein Negative mg/dL (Neg-Trace) 03/04/24 Urine Creatinine 187.59 mg/dL 03/04/24 Assessment & Plan Assessment & Plan (1) Hypertension: Code(s): I10 - Essential (primary) hypertension Category: Medical Qualifiers: Hypertension type: unspecified Qualified Code(s): I10 - Essential (primary) hypertension Plan 33-year-old man with hypertension. Renal function is normal at this time. Serum electrolytes were normal. Blood pressure is suboptimal We will obtain 24 hour ABPM before making any changes Renal function is stable. Urinalysis was benign without any protein or blood. Urine specific gravity was elevated primarily due to volume depletion I have encouraged him to increase his p.o. fluid intake. He should continue with a low-salt diet given the history of hypertension. He has a history of gross hematuria. But imaging study was unremarkable at the time. If it happens again he would require further urological evaluation. Orders: Orders AMB 24 HR B/P Monitor PLACEMENT Today I10 - Essential (primary) hypertension Coding Level of Care Code Est Pt Level 2 (84762) Diagnoses Hypertension, unspecified type I10 Hypertension type: unspecified
== END 2024-03-05 11:59 | disposition home or self-care (01) ==
PROVIDERS: PCP Nurse Practitioner Family; Visit Provider Internal Medicine Hypertension Specialist
DX: I10 Essential (primary) hypertension (principal)
CPT/HCPCS: 99212

== ENCOUNTER → 2024-03-05 11:41 | Outpatient (BNVA) | payer OTHER, SELFPAY | PROVIDERS: PCP Nurse Practitioner Family; Visit Provider Internal Medicine Hypertension Specialist | DX: I10 Essential (primary) hypertension (principal); Z79.899 Other long term (current) drug therapy | CPT/HCPCS: 99212 ==

== ENCOUNTER 2024-03-06 10:05 | Outpatient (AMB) | payer OTHER, SELFPAY ==
--- NOTE | 2024-03-06 10:15 | MHC.PC.OV ---
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: No Allergies No Known Allergies Allergy (Verified 03/06/24 10:44) Medication List - Last Reconciled 03/06/24 by Kamilah Raymundo, PAINTER INTERIOR FINISH- amlodipine 5 mg PO DAILY olmesartan 20 mg PO DAILY omeprazole 20 mg PO DAILY 90 days prazosin 1 mg PO BEDTIME Tobacco use date assessed: 01/31/24 Dental Screening Dental Screen Date: 01/31/24 HPI HPI Comments History of Present Illness Details 33-year-old male with anemia, MDD, generalized anxiety disorder, GERD with esophagitis, hiatal hernia, hypertension, vitamin-D deficiency, B12 deficiency, hepatic hemangiomas (abdominal ultrasound 2023 no additional imaging required) Status post EGD 09/13/2021 Surgery: unsure thinks maybe appendix Social: [place] in [place] Family hx: no bio siblings, no children, MGM dementia DM; Mom + mental health, does not know Dad or Dads family hx Health Maintenance: ?Tdap thinks UTD Specialists: GI - not routinely ff'd Renal Counseling [address] [place] [address] Here today for CPE. Renal consult reviewed; will be undergoing 24 hour BP check. Controlled today on current meds. 01/2024 LDL 133 otherwise labs wnl Had some struggles with the counseling referral, working through this. Has intake appt on Monday. 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 No changes or concerns Skin - chronic areas on nose, otherwise nothing new or concerning Dentist - regular c/o stuffy nose upon waking General: Well developed, well nourished, in no acute distress. Appears stated age. Head: Normocephalic, atraumatic. Eyes: Pupils are equal, round and reactive to light and accommodation. Conjunctivae are clear. Vision grossly normal. Ears: mild erythema bilat EAC L>R c/w Q tip use, congestion behind bilat intact TM Nose: Patent, without discharge. Mouth: There are no ulcers or lesions noted. No inflammation, no post nasal drip, no plaques nor exudates. Neck: Supple, no adenopathy or thyromegaly. Lungs: Clear to auscultation bilaterally. No rales, rhonchi or wheeze noted. Good air flow in all nieves. Heart: Regular rate and rhythm. No murmurs, click, rubs or gallops are noted. Abdomen: Bowel sounds present in all quadrants. The abdomen is soft, nontender, with no masses or organomegaly noted. No hernias are noted. Musculoskeletal: Joints are nontender, without swelling, redness, or effusions. Range of motion is observed to be normal. Pulses: Peripheral pulses are equal and palpable bilaterally. Extremities: No clubbing, cyanosis nor edema is noted. Neurologic: Gait and station normal. Cranial Nerves 2-12 intact. Motor strength grossly symmetrical and intact. No sensory loss. Balance normal. Skin: No rashes, ulcers, or lesions noted. Turgor is good. Skin color is good. Hair and nails are without abnormalities. Psych: Normal eye contact, affect and mood appropriate, and normal interactions. Patient is alert and appropriate to context. Plan Cont current meds trial flonase for ETD and nasal congestion FU with Renal and counseling RTO 1 year for CPE, sooner PRN PFSH Medical History Hypertension Depression Anxiety PTSD (post-traumatic stress disorder) GERD (gastroesophageal reflux disease) Surgical History History of esophageal surgery History of esophagogastroduodenoscopy (EGD) Family History Maternal Grandmother Diabetes Mother Chronic mental illness Social History Housing: Apartment Alcohol intake: current Alcohol intake frequency: holidays/special occasions only Patient Tobacco Use Status: Never used Tobacco e-Cigarette/Vaping Use: Never Used service: No Current occupational status: employed 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 Ruddy Chung, Kimberly Umana, Oniel Wilburn and colleagues, with an educational liz from [employer]. Physical exam (Primary Care) Vital Signs: Last Vital Signs Temp 97.7 F 03/06/24 10:21 Pulse 58 03/06/24 10:21 Resp 16 03/06/24 10:21 BP 132/70 03/06/24 10:21 Pulse Ox 98 03/06/24 10:21 Oxygen Delivery Method Room Air 03/06/24 10:21 BMI result Body Mass Index 31.2 Tobacco/Smoking Status: Tobacco use Status Tobacco use date assessed 01/31/24 03/06/24 10:17 Patient Tobacco Use Status Never used Tobacco 03/06/24 10:17 e-Cigarette/Vaping Use Never Used 03/06/24 10:17 Thrive Assessment: Date of Thrive Assessment Date Thrive assessed 01/31/24 03/06/24 10:17 Assessment and Plan Assessment & Plan (1) Encounter for general adult medical examination without abnormal findings: Code(s): Z00.00 - Encounter for general adult medical examination without abnormal findings (2) Borderline hypercholesterolemia: Comment: 01/2024 LDL 133, Lifestyle mods encouraged Code(s): E78.00 - Pure hypercholesterolemia, unspecified (3) ETD (eustachian tube dysfunction): Code(s): H69.90 - Unspecified Eustachian tube disorder, unspecified ear Qualifiers: Laterality: bilateral Qualified Code(s): H69.93 - Unspecified Eustachian tube disorder, bilateral Medications: New fluticasone propionate 50 mcg/actuation administer into each nostril 1 spray intranasal BID 16 grams 7RF Refilled prazosin 1 mg PO BEDTIME 90 caps 0RF Patient Instructions: Health screenings for men ages 40 to 64 You should visit your health care provider regularly, even if you feel healthy. The purpose of these visits is to: Screen for medical issues Assess your risk for future medical problems Encourage a healthy lifestyle Update vaccinations and other preventive care services Help you get to know your provider in case of an illness Information Even if you feel fine, you should still see your provider for regular checkups. These visits can help you avoid problems in the future. For example, the only way to find out if you have high blood pressure is to have it checked regularly. High blood sugar and high cholesterol level also may not have any symptoms in the early stages. Simple blood tests can check for these conditions. There are specific times when you should see your provider or receive specific health screenings. The [place] Preventive Services Task Force publishes a list of recommended screenings. Below are screening guidelines for men ages 40 to 64. BLOOD PRESSURE SCREENING Have your blood pressure checked at least once every year. Watch for blood pressure screenings in your area. Ask your provider if you can stop in to have your blood pressure checked. Ask your provider if you need your blood pressure checked more often if: You have diabetes, heart disease, kidney problems, or are overweight or have certain other health conditions You have a first-degree relative with high blood pressure You are Black Your blood pressure top number is from 120 to 129 mm Hg, or the bottom number is from 70 to 79 mm Hg If the top number is 130 mm Hg or greater or the bottom number is 80 mm Hg or greater, this is considered stage 1 hypertension. Schedule an appointment with your provider to learn how you can lower your blood pressure. Effects of age on blood pressure CHOLESTEROL SCREENING Cholesterol screening should begin at age 35 for men with no known risk factors for coronary heart disease. Repeat cholesterol screening should take place: Every 5 years for men with normal cholesterol levels More often if changes occur in lifestyle (including weight gain and diet) More often if you have diabetes, heart disease, kidney problems, or certain other conditions COLORECTAL CANCER SCREENING If you are under age 45, talk to your provider about getting screened. You may need to be screened if you have a strong family history of colon cancer or polyps. Screening may also be considered if you have risk factors such as a history of inflammatory bowel disease or polyps. If you are age 45 to 75, you should be screened for colorectal cancer. There are several screening tests available: A stool-based fecal occult blood (gFOBT) or fecal immunochemical test (FIT) every year A stool sDNA test every 1 to 3 years Flexible sigmoidoscopy every 5 years or every 10 years with stool testing FIT done every year CT colonography (virtual colonoscopy) every 5 years Colonoscopy every 10 years You may need a colonoscopy more often if you have risk factors for colorectal cancer, such as: Ulcerative colitis A personal or family history of colorectal cancer A history of growths in your colon called adenomatous polyps DENTAL EXAM Go to the dentist once or twice every year for an exam and cleaning. Your dentist will evaluate if you have a need for more frequent visits. DIABETES SCREENING All adults who do not have risk factors for diabetes should be screened starting at age 35 and repeated every 3 years. If you have other risk factors for diabetes, such as a first degree relative with diabetes, overweight or obesity, high blood pressure, prediabetes, or a history of heart disease, you may be tested more often. If you are overweight and have other risk factors, such as high blood pressure and are planning to become , screening is recommended. EYE EXAM Have an eye exam every 2 to 4 years ages 40 to 54 and every 1 to 3 years ages 55 to 64. Your provider may recommend more frequent eye exams if you have vision problems or glaucoma risk. Have an eye exam that includes an examination of your retina (back of your eye) at least every year if you have diabetes. IMMUNIZATIONS Commonly needed vaccines include: Flu shot: get one every year COVID-19 vaccine: ask your provider what is best for you Tetanus-diphtheria and acellular pertussis (Tdap) vaccine: have as one of your tetanus-diphtheria vaccines if you did not receive it as an adolescent Tetanus-diphtheria: have a booster (or Tdap) every 10 years Varicella vaccine: receive 2 doses if you never had chickenpox or the varicella vaccine and were born in 1979 or after Hepatitis B vaccine: receive 2, 3, or 4 doses, depending on your exact circumstances, if you did not receive these as a child or adolescent, until age 59 Shingles (herpes zoster) vaccine: at or after age 50 Ask your provider if you should receive other immunizations, especially if you have certain medical conditions, such as diabetes or are at increased risk for some diseases such as pneumonia. INFECTIOUS DISEASE SCREENING Screening for hepatitis C: all adults ages 18 to 79 should get a one-time test for hepatitis C. Screening for human immunodeficiency virus (HIV): all people ages 15 to 65 should get a one-time test for HIV. Depending on your lifestyle and medical history, you may need to be screened for infections such as syphilis, chlamydia, and other infections. LUNG CANCER SCREENING You should have an annual screening for lung cancer with low-dose computed tomography (LDCT) if: You are age 50 to 80 years AND You have a 20 pack-year smoking history AND You currently smoke or have quit within the past 15 years OSTEOPOROSIS SCREENING If you are age 50 to 64 and have risk factors for osteoporosis, you should discuss screening with your provider. Risk factors can include long-term steroid use, low body weight, smoking, heavy alcohol use, having a fracture after age 50, or a family history of hip fracture or osteoporosis. Osteoporosis PHYSICAL EXAM All adults should visit their provider from time to time, even if they are healthy. The purpose of these visits is to: Screen for diseases Assess risk of future medical problems Encourage a healthy lifestyle Update vaccinations and other preventive care services Maintain a relationship with a provider in case of an illness Your height, weight, and body mass index (BMI) should be checked at every exam. During your exam, your provider may ask you about: Depression and anxiety Diet and exercise Alcohol and tobacco use Safety, such as use of seat belts and smoke detectors Your medicines and risk for interactions PROSTATE CANCER SCREENING If you're 55 through 69 years old, before having the test, talk to your provider about the pros and cons of having a PSA test. Ask about: Whether screening decreases your chance of dying from prostate cancer. Whether there is any harm from prostate cancer screening, such as side effects from testing or overtreatment of cancer when discovered. Whether you have a higher risk of prostate cancer than others. If you are age 55 or younger, screening is not generally recommended. You should talk with your provider about if you have a higher risk for prostate cancer. Risk factors include: Having a family history of prostate cancer (especially a brother or father) Being If you choose to be tested, the PSA blood test is repeated over time (yearly or less often), though the best frequency is not known. Prostate examinations are no longer routinely done on men with no symptoms. Prostate cancer SKIN EXAM Your provider may check your skin for signs of skin cancer, especially if you're at high risk. People at high risk include those who have had skin cancer before, have close relatives with skin cancer, or have a weakened immune system. TESTICULAR EXAM The [place] Preventive Services Task Force (USPSTF) now recommends against performing testicular self-exams. Doing testicular self-exams has been shown to have little to no benefit. Coding Level of Care Code Est Pt Prev Care 18-39y(39904) Diagnoses Encounter for general adult medical examination without abnormal findings Z00.00 Borderline hypercholesterolemia E78.00 Dysfunction of both eustachian tubes H69.93 Laterality: bilateral
[2024-03-06 10:21] VITALS: BP 132/70; PULSE 58; RESP 16; TEMP 36.5; O2SAT 98; BMI 31.2
== END 2024-03-06 10:55 | disposition home or self-care (01) ==
PROVIDERS: PCP Nurse Practitioner Family; Visit Provider Nurse Practitioner Family
DX: Z00.00 Encounter for general adult medical examination without abnormal findings (principal); E78.00 Pure hypercholesterolemia, unspecified; H69.93 Unspecified Eustachian tube disorder, bilateral
CPT/HCPCS: 99395

== ENCOUNTER → 2024-03-11 10:07 | Outpatient (BNVA) | payer OTHER, SELFPAY | PROVIDERS: PCP Nurse Practitioner Family; Visit Provider Internal Medicine Hypertension Specialist ==

== ENCOUNTER 2024-03-12 10:29 | Outpatient (AMB) | payer OTHER, SELFPAY ==
[2024-03-12 10:34] VITALS: BP 158/96; PULSE 47; O2SAT 98; BMI 31.3
--- NOTE | 2024-03-12 10:34 | HO.NEPHOV ---
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 He was on medication for a while then he stopped taking his medication due to insurance issues and he did not have PCP. He has been on amlodipine for quite some time. About a year ago VASQUEZ inhibitor has been added. He has been referred for evaluation and management of hypertension. Eriberto has a history of gross hematuria which was painless. He underwent CT urogram which was unremarkable. He did not have urologic evaluation at the time. 03/05/2024. Blood pressure has been suboptimal. 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 Cognitive needs: No Hearing needs: Yes Vision needs: Yes Physical Exam Vital Signs: Last Vital Signs Pulse 47 L 03/12/24 10:34 BP 158/96 H 03/12/24 10:34 Pulse Ox 98 03/12/24 10:34 Oxygen Delivery Method Room Air 03/12/24 10:34 BMI result Body Mass Index 31.3 Const General: comfortable; No acute distress Orientation/consciousness: patient oriented x3 Eyes General: appearance normal, both eyes and all related structures Visual Alves: normal visual alves by confrontation Neck Neck: Yes supple and Yes no JVD Resp Effort & Inspection: normal respiratory effort and respiratory effort not decreased Auscultation: rhonchi Cardio Palpation: no palpable S3 and no palpable S4 Heart sounds: no rubs GI Inspection: Yes normal to inspection Palpation (GI): Soft to palpation Percussion: Yes normal to percussion Auscultation: normal bowel sounds General: Yes no CVA tenderness Back/Spine/Pelvis Back: no CVA tenderness Skin General skin exam: no petechiae and no purpura Neuro General: patient oriented x3 and no focal motor deficits Extrem General: No clubbing and No edema Office Procedures 24 B/P Monitor Interpretation Details: Average BP is 131/85 Nocturnal dipping Superimposed white coat effect CPT: 74331 24 Hour Blood Pressure Monitor Reading Procedure code (CPT) selection complete Results Reviewed Nephrology Results: Hgb 14.1 g/dl (14.0-18.0) 01/31/24 WBC 6.7 X10*3/uL (4.8-10.8) 01/31/24 Plt Count 200 X10*3/uL (160-400) 01/31/24 Sodium 141 mmol/L (135-145) 01/31/24 Potassium 3.6 mmol/L (3.3-5.1) 01/31/24 Chloride 111 mmol/L (96-108) H 01/31/24 Carbon Dioxide 25 mmol/L (22-29) 01/31/24 BUN 18 mg/dL (9-16) H 01/31/24 Creatinine 0.82 mg/dL (0.5-1.4) 01/31/24 Calcium 9.5 mg/dL (8.4-10.2) 01/31/24 Urine Protein Negative mg/dL (Neg-Trace) 03/04/24 Urine Creatinine 187.59 mg/dL 03/04/24 Assessment & Plan Assessment & Plan (1) Hypertension: Code(s): I10 - Essential (primary) hypertension Category: Medical Qualifiers: Hypertension type: unspecified Qualified Code(s): I10 - Essential (primary) hypertension Plan 33-year-old man with hypertension. Renal function is normal at this time. Serum electrolytes were normal. Blood pressure 24 hour ABPM : Average 24 hr BP of 131/85 Nocturnal dipping of 10 mmHg Morning readings are elevated He takes both Amlodipine and Olmesartan around 10 AM This a componenet of superimposed White coat effect as well Change Olmesartan to 20 mg Q PM instead of morning Keep same dose of AMlodipine Encouraged to monitor BP At home atleast twice a week Renal function is stable. Urinalysis was benign without any protein or blood. Urine specific gravity was elevated primarily due to volume depletion I have encouraged him to increase his p.o. fluid intake. He should continue with a low-salt diet given the history of hypertension. He has a history of gross hematuria. But imaging study was unremarkable at the time. If it happens again he would require further urological evaluation. Orders: Orders AMB 24 HR B/P Monitor INTERPRETATION Today I10 - Essential (primary) hypertension Medications: New olmesartan 20 mg PO .evening 90 tabs 0RF Refilled amlodipine 5 mg PO DAILY 90 tabs 0RF Coding Level of Care Code Est Pt Level 3 (22477) Diagnoses Hypertension, unspecified type I10 Hypertension type: unspecified CPT Codes - CPT: 52066 24 Hour Blood Pressure Monitor Reading ([id number])
== END 2024-03-12 10:51 | disposition home or self-care (01) ==
PROVIDERS: PCP Nurse Practitioner Family; Visit Provider Internal Medicine Hypertension Specialist
DX: I10 Essential (primary) hypertension (principal)
CPT/HCPCS: 93790; 99213

== ENCOUNTER → 2024-03-12 10:29 | Outpatient (BNVA) | payer OTHER, SELFPAY | PROVIDERS: PCP Nurse Practitioner Family; Visit Provider Internal Medicine Hypertension Specialist | DX: I10 Essential (primary) hypertension (principal) | CPT/HCPCS: 99212 ==

== ENCOUNTER 2024-04-25 14:23 | Outpatient (AMB) | payer OTHER, SELFPAY ==
[2024-04-25 14:23] VITALS: BP 134/76; PULSE 59; O2SAT 98; BMI 30.7
--- NOTE | 2024-04-25 14:23 | HO.NEPHOV ---
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 He was on medication for a while then he stopped taking his medication due to insurance issues and he did not have PCP. He has been on amlodipine for quite some time. About a year ago VASQUEZ inhibitor has been added. He has been referred for evaluation and management of hypertension. Eriberto has a history of gross hematuria which was painless. He underwent CT urogram which was unremarkable. He did not have urologic evaluation at the time. 03/05/2024. Blood pressure has been suboptimal. 03/12 Underwent ABPM 04/25/24 Tolerating Olmesartan in evening Home BP [facility] Medical History Hypertension Depression Anxiety PTSD (post-traumatic stress disorder) GERD (gastroesophageal reflux disease) Surgical History History of esophageal surgery History of esophagogastroduodenoscopy (EGD) Family History Maternal Grandmother Diabetes Mother Chronic mental illness Social History Housing: Apartment Alcohol intake: current Alcohol intake frequency: holidays/special occasions only Patient Tobacco Use Status: Never used Tobacco e-Cigarette/Vaping Use: Never Used service: No Current occupational status: employed 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 Renal function is normal at this time. Serum electrolytes were normal. Blood pressure 24 hour ABPM : Average 24 hr BP of 131/85 Nocturnal dipping of 10 mmHg Morning readings are elevated He takes both Amlodipine and Olmesartan around 10 AM This a componenet of superimposed White coat effect as well Changed Olmesartan to 20 mg Q PM instead of morning Keep same dose of AMlodipine Encouraged to monitor BP At home atleast twice a week Renal function is stable. Urinalysis was benign without any protein or blood. Urine specific gravity was elevated primarily due to volume depletion I have encouraged him to increase his p.o. fluid intake. He should continue with a low-salt diet given the history of hypertension. He has a history of gross hematuria. But imaging study was unremarkable at the time. If it happens again he would require further urological evaluation. Orders: Orders UA and rflx microscopic 1 Year I10 - Essential (primary) hypertension Coding Level of Care Code Est Pt Level 3 (53742) Diagnoses Hypertension, unspecified type I10 Hypertension type: unspecified
== END 2024-04-25 14:35 | disposition home or self-care (01) ==
PROVIDERS: PCP Nurse Practitioner Family; Visit Provider Internal Medicine Hypertension Specialist
DX: I10 Essential (primary) hypertension (principal)
CPT/HCPCS: 99213

== ENCOUNTER → 2024-04-25 14:23 | Outpatient (BNVA) | payer OTHER, SELFPAY | PROVIDERS: PCP Nurse Practitioner Family; Visit Provider Internal Medicine Hypertension Specialist | DX: I10 Essential (primary) hypertension (principal) | CPT/HCPCS: 99212 ==

== ENCOUNTER 2025-03-10 11:52 | Outpatient (AMB) | payer OTHER, SELFPAY ==
--- NOTE | 2025-03-10 11:54 | MHC.PC.OV ---
Vital Signs 03/10/25 11:59 Height 5 ft 8 in Weight 214 lb 4 oz BMI 32.6 BP 140/80 H Blood Pressure Location Lt brachial Position Sitting Respiration 13 Pulse 75 Pulse Source Pulse Oximeter Temp 97.2 F Temp Source Oral Pulse Oximetry (%) 99 Oxygen Delivery Method Room Air Intake Visit Reasons: 1 year CPE Intake Note: CPE. Patient got tanned a month ago and when stretches skin hurts. Patient also needs refill on meds. 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: No Allergies No Known Allergies Allergy (Verified 03/10/25 12:18) Medication List - Last Reconciled 03/10/25 by Kamilah Raymundo, SUEDE CLEANER- amlodipine 5 mg PO DAILY fluticasone propionate 50 mcg/actuation 1 spray intranasal BID olmesartan 20 mg PO QPM omeprazole 20 mg PO DAILY 90 days prazosin 1 mg PO BEDTIME Tobacco use date assessed: 03/10/25 Dental Screening Dental Screen Date: 03/10/25 Did you have a dental visit in the last 12 months?: Yes Did you have a dental problem in the last 6 months where you did not have access to dental care?: No Was dental information given to patient?: Patient has dentist HPI HPI Comments History of Present Illness Details 34-year-old male with anemia, MDD, generalized anxiety disorder, GERD with esophagitis, hiatal hernia, hypertension, vitamin-D deficiency, B12 deficiency, hepatic hemangiomas (abdominal ultrasound 2023 no additional imaging required), HLD Status post EGD 09/13/2021, I&D L axilla Surgery: unsure thinks maybe appendix Social: [place] in [place] Family hx: no bio siblings, no children, MGM dementia DM; Mom + mental health, does not know Dad or Dads family hx Health Maintenance: ?Tdap 2002, Updated today Specialists: GI - not routinely ff'd Renal annual visits, next 04/2025 Counseling active History of Present Illness - The patient is a 34-year-old male presenting with concerns related to multiple chronic conditions and recent episodic medical events. - Hypertension managed with amlodipine, olmesartan. - Chronic GERD managed with omeprazole. - History of seasonal allergic rhinitis, currently resolved. - Insomnia and anxiety, prazosin on hold but reports return of sleep issues. - Obesity noted with BMI 32.6; weight affected by recent events. - Sunburn with leg swelling, sunscreen used inadequately. - Admitted at [facility] 09/2024 for cellulitis L axilla, IV ABT required; I&D. Work up reviewed. New dx HS. Reports cyst R axilla a few days ago; he expressed purulent drainage and the area is now resolved. Not using Dakins soluation or the like for daily cleansing - Eyes - wears glasses, last eye exam a few years ago. No changes or concerns - Mood active w/ counselor. Health Maintenance - Discussion initiated regarding cholesterol screening owing to previous borderline LDL levels of 133 mg/dL. - Recommendation for tetanus vaccination due to time elapsed since the last administration (2002) and history of cystic lesions. Review of Systems - Cardiovascular: Reports stable blood pressure, history of increased blood pressure during stress. - Dermatology: Reports severe sunburn over legs leading to swelling and discomfort. - Respiratory: Denies any current respiratory issues. - Gastrointestinal: Reports chronic GERD; manageable with medication. - Psychiatric: Reports anxiety and insomnia; previously managed with prazosin. Physical Exam General: Well developed, well nourished, in no acute distress. Appears stated age. Head: Normocephalic, atraumatic. Eyes: Pupils are equal, round and reactive to light and accommodation. Conjunctivae are clear. Vision grossly normal. Ears: mild erythema bilat EAC L>R c/w Q tip use, congestion behind bilat intact TM Nose: Patent, without discharge. Mouth: There are no ulcers or lesions noted. No inflammation, no post nasal drip, no plaques nor exudates. Neck: Supple, no adenopathy or thyromegaly. Lungs: Clear to auscultation bilaterally. No rales, rhonchi or wheeze noted. Good air flow in all nieves. Heart: Regular rate and rhythm. No murmurs, click, rubs or gallops are noted. Abdomen: Bowel sounds present in all quadrants. The abdomen is soft, nontender, with no masses or organomegaly noted. No hernias are noted. : deferred, reviewed ANDI and recommendations Musculoskeletal: Joints are nontender, without swelling, redness, or effusions. Range of motion is observed to be normal. Pulses: Peripheral pulses are equal and palpable bilaterally. Extremities: No clubbing, cyanosis nor edema is noted. Neurologic: Gait and station normal. Cranial Nerves 2-12 intact. Motor strength grossly symmetrical and intact. No sensory loss. Balance normal. Skin: No rashes, ulcers, or lesions noted. Turgor is good. Skin color is good. Hair and nails are without abnormalities. Scar L axilla; no active cystic lesions; cont mild erythema to anterior chest and lower legs from previous sun burn Psych: Normal eye contact, affect and mood appropriate, and normal interactions. Patient is alert and appropriate to context. Results Labs from 09/2024 done at [facility] reviewed normal cbc, cmb Discussion Notes During our discussion, I clarified the management strategies for each of the patient's medical issues. We reviewed the need for regular medication adherence for hypertension and GERD. I explained the necessity of maintaining adequate sun protection and adjusting sunscreen use based on skin sensitivity. We also discussed the management of hydradenitis suppurativa with a Daken's solution wash to reduce infection recurrence, and the possible use of doxycycline for long-term control. The need for a tetanus booster was recommended due to past skin infections. I encouraged the use of the patient portal for effective communication and appointment scheduling to facilitate timely care. We also reviewed the patient's recent health events and strategies to avoid recurring issues. Assessment and Plan 1. Essential Hypertension - Continue current medications & fu with [facility] Renal 2. Chronic GERD - Continue Omeprazole 3. Obesity - Address through resumed activity. 4. Sunburn - Use adequate sunscreen. 5. Hydradenitis Suppurativa - Initiate doxycycline and Daken's wash. - Refer to Derm PRN 6. Tetanus Vaccination - Administered today. Labs today. RTO 1 YEAR CPE, SOONER PRN Patient Instructions - Take all prescribed medications as directed. - Use sunscreen liberally and reapply frequently when exposed to sunlight. - Follow the home care regimen for hydradenitis, including the use of Daken's wash. - Schedule annual check-up and communicate via the portal for urgent care needs. - Follow up in case of severe reactions or emergence of new symptoms. Consent Patient was informed and verbally consented to the use of an ambient scribe for clinic note documentation during this visit. An additional 30 minutes was spent addressing the problem(s) noted at todays visit. This includes time spent before the visit reviewing the chart, time spent during the visit, and time spent after the visit on documentation reviewing laboratory results, diagnostic imaging, medications, performing a medically necessary evaluation, counseling on diagnoses, care coordination, ordering appropriate tests, ordering appropriate medications, review of tests performed by other providers, reporting test results with the patient, communication with other healthcare providers. [facility] Medical History (Updated 03/10/25 @ 12:37 by DAVIDE PottsBRADLY) Anxiety Depression GERD (gastroesophageal reflux disease) Hypertension PTSD (post-traumatic stress disorder) Surgical History (Updated 03/10/25 @ 12:56 by DAVIDE PottsBRADLY) History of esophageal surgery History of esophagogastroduodenoscopy (EGD) History of incision and drainage (~09/2024) Family History Maternal Grandmother Diabetes Mother Chronic mental illness Social History Housing: Apartment Alcohol intake: current Alcohol intake frequency: holidays/special occasions only Patient Tobacco Use Status: Never used Tobacco e-Cigarette/Vaping Use: Never Used service: No Current occupational status: employed Current occupation: [employer] Cognitive needs: No Hearing needs: Yes Vision needs: Yes Questionnaire PHQ-9 Over the last 2 weeks, how often have you been bothered by any of the following problems? 1. Little interest or pleasure in doing things: nearly every day 2. Feeling down, depressed, or hopeless: several days 3. Trouble falling or staying asleep, or sleeping too much: several days 4. Feeling tired or having little energy: several days 5. Poor appetite or overeating: several days 6. Feeling bad about yourself - or that you are a failure or have let yourself or your family down: not at all 7. Trouble concentrating on things, such as reading the newspaper or watching television: not at all 8. Moving or speaking so slowly that other people could have noticed. Or the opposite - being so fidgety or restless that you have been moving around a lot more than usual: not at all 9. Thoughts that you would be better off or of hurting yourself in some way: not at all Total score: 7 Depression Screening Interpretation: Positive Depression Screening Follow-up: Existing condition and In treatment Depression Screening Done: Yes 50229 - PHQ-9 Billing: Yes Source: Developed by Drs. Ruddy Chung, Kimberly Umana, Oniel Wilburn and colleagues, with an educational liz from [employer]. Thrive Questionnaire Date Thrive assessed: 03/10/25 I am a: Patient What is your living situation today?: I have a steady place to live Within the past 12 months, did the food you bought not last and you didn't have the money to get more?: Never true Within the past 12 months, did you worry whether your food would run out before you got money to buy more?: Never true Do you have trouble paying for medicines?: No Do you have trouble getting transportation to medical appointments?: No Do you have trouble paying your heating and electricity bill?: No Do you have trouble taking care of your child, family member or friend?: No Do you have trouble with day-to-day activities such as bathing, preparing meals, shopping, managing finances, etc.?: No Are you currently unemployed and looking for a job?: No Are you interested in more education?: No Please select the resources that you would like help with: None Currently or been in a relationship where the following occur: No concerns reported THRIVE Score: 0 AUDIT C Alcohol Use Questionnaire (AUDIT-C) 1. How often do you have a drink containing alcohol?: Monthly or less 2. How many drinks containing alcohol do you have on a typical day when you are drinking?: 1 or 2 3. How often do you have six or more drinks on one occasion?: Less than monthly Total Score: 2 Score Reviewed/Action Taken: Yes ROBERT-7 AMB Questionnaire ROBERT-7 Date ROBERT - 7 assessed: 03/10/25 Feeling nervous, anxious, or on edge: 1 = Several days Not being able to stop or control worryin = Not at all Worrying too much about different things: 1 = Several days Trouble relaxin = Not at all Being so restless that it is hard to sit still: 0 = Not at all Becoming easily annoyed or irritable: 1 = Several days Feeling afraid as if something awful might happen: 0 = Not at all Total ROBERT-7 score (0-4 normal; 5-9 mild; 10-14 moderate; 15-21 severe): 3 Source: Developed by Drs. Ruddy Chung, Kimberly Umana, Oniel Wilburn and colleagues, with an educational liz from [employer]. ROBERT-7 Assessment Billing ROBERT-7 Assessment Tool: ROBERT-7 Assessment 65879 Physical exam (Primary Care) Vital Signs: Last Vital Signs Temp 97.2 F 03/10/25 11:59 Pulse 75 03/10/25 11:59 Resp 13 03/10/25 11:59 BP 140/80 H 03/10/25 11:59 Pulse Ox 99 03/10/25 11:59 Oxygen Delivery Method Room Air 03/10/25 11:59 BMI result Body Mass Index 32.6 BMI Assessment/Plan discussion: High BMI High, discussed plan: lifestyle Tobacco/Smoking Status: Tobacco use Status Tobacco use date assessed 03/10/25 03/10/25 11:57 Patient Tobacco Use Status Never used Tobacco 03/10/25 11:57 e-Cigarette/Vaping Use Never Used 03/10/25 11:57 PHQ-9: PHQ-9 Score PHQ-9: Total score 7 03/10/25 12:18 Depression Screening Interpretation: Positive Depression Screening Follow-up: Existing condition and In treatment Thrive Assessment: Date of Thrive Assessment Date Thrive assessed 03/10/25 03/10/25 11:57 Currently or been in a relationship where the following occur: No concerns reported Immunizations Boostrix Tdap 2.5 Lf unit-8 mcg-5 Lf/0.5 mL intramuscular syringe Performing Provider: YESSY Potts Performing Location: [facility] Family Medicine Administered by: Berta Hannon MA on 03/10/25 12:53 Dose Route Admin Location Dispensed Lot Number Expiration Date [facility] Retail Presentation Specialist 0.5 mL IM Right Deltoid 0.5 mL [id number] 06/03/27 53352-808-87 [employer] Total Dispensed Waste 0.5 mL 0 % VIS Given Date VIS Provided VIS Publication Date 03/10/25 Single Vaccine 21 Eligibility Eligibility Date Funding Source Not [facility] Eligible 03/10/25 Private Coding Level of Care Code Est Pt Level 4 (55918) Est Pt Prev Care 18-39y(71961) Diagnoses Encounter for general adult medical examination without abnormal findings Z00.00 Moderate episode of recurrent major depressive disorder F33.1 Major depression episode severity: moderate ROBERT (generalized anxiety disorder) F41.1 Hypertension, unspecified type I10 Hypertension type: unspecified Borderline hypercholesterolemia E78.00 Class 1 obesity due to excess calories with serious comorbidity and body mass index (BMI) of 30.0 to 30.9 in adult E66.09; Z68.30 Obesity type: due to excess calories Gastroesophageal reflux disease with esophagitis without hemorrhage K21.00 Esophagitis presence: with esophagitis Esophagitis bleeding: without hemorrhage Burn from the sun L55.9 Need for Tdap vaccination Z23 Hidradenitis suppurativa L73.2 Hospital discharge follow-up Z09 Additional Codes ROBERT-7 Assessment Billing - ROBERT-7 Assessment Tool: ROBERT-7 Assessment 55911 ([id number]) PHQ-9 - 85834 - PHQ-9 Billing: Yes ([id number]) Assessment & Plan Assessment & Plan (1) Encounter for general adult medical examination without abnormal findings: Onset Date: ~03/10/25 Code(s): Z00.00 - Encounter for general adult medical examination without abnormal findings Category: Medical (2) MDD (major depressive disorder), recurrent episode: Code(s): F33.9 - Major depressive disorder, recurrent, unspecified Category: Medical Qualifiers: Major depression episode severity: moderate Qualified Code(s): F33.1 - Major depressive disorder, recurrent, moderate (3) ROBERT (generalized anxiety disorder): Code(s): F41.1 - Generalized anxiety disorder Category: Medical (4) Hypertension: Code(s): I10 - Essential (primary) hypertension Category: Medical Qualifiers: Hypertension type: unspecified Qualified Code(s): I10 - Essential (primary) hypertension (5) Borderline hypercholesterolemia: Comment: 01/2024 LDL 133, Lifestyle mods encouraged Code(s): E78.00 - Pure hypercholesterolemia, unspecified Category: Medical (6) Class 1 obesity with serious comorbidity and body mass index (BMI) of 30.0 to 30.9 in adult: Comment: BMI greater than 30 with hypertension Code(s): E66.9 - Obesity, unspecified; Z68.30 - Body mass index [BMI] 30.0-30.9, adult Category: Medical Qualifiers: Obesity type: due to excess calories Qualified Code(s): E66.09 - Other obesity due to excess calories; Z68.30 - Body mass index [BMI] 30.0-30.9, adult (7) GERD (gastroesophageal reflux disease): Comment: 09/13/21 EGD SHOWED: ESOPHAGUS:? GE junction at 34 cms, small hiatal hernia 34 to 36 cms. Focal healing esophagitis at GE junction. No evidence of past esophageal surgery or esophageal cancer. (Its possible that pt had a benign papilloma which was removed endoscopically with snare polypectomy) STOMACH:? Mild gastritis - biopsied were negative for H Pylori. Plan: Continue Omeprazole 20 mg daily Code(s): K21.9 - Gastro-esophageal reflux disease without esophagitis Category: Medical Qualifiers: Esophagitis presence: with esophagitis Esophagitis bleeding: without hemorrhage Qualified Code(s): K21.00 - Gastro-esophageal reflux disease with esophagitis, without bleeding (8) Burn from the sun: Code(s): L55.9 - Sunburn, unspecified Category: Medical (9) Need for Tdap vaccination: Code(s): Z23 - Encounter for immunization Category: Medical (10) Hidradenitis suppurativa: Code(s): L73.2 - Hidradenitis suppurativa Category: Medical (11) Hospital discharge follow-up: Code(s): Z09 - Encounter for follow-up examination after completed treatment for conditions other than malignant neoplasm Plan . Orders: Orders Vitamin B12 and Folate Today E78.00 - Pure hypercholesterolemia, unspecified, I10 - Essential (primary) hypertension, Z00.00 - Encounter for general adult medical examination without abnormal findings TSH reflex Free T4 Today E78.00 - Pure hypercholesterolemia, unspecified, I10 - Essential (primary) hypertension, Z00.00 - Encounter for general adult medical examination without abnormal findings Lipid Panel Today E78.00 - Pure hypercholesterolemia, unspecified, I10 - Essential (primary) hypertension, Z00.00 - Encounter for general adult medical examination without abnormal findings Hemoglobin A1c Today E78.00 - Pure hypercholesterolemia, unspecified, I10 - Essential (primary) hypertension, Z00.00 - Encounter for general adult medical examination without abnormal findings Microalbumin, Random (w Creat) Today E78.00 - Pure hypercholesterolemia, unspecified, I10 - Essential (primary) hypertension, Z00.00 - Encounter for general adult medical examination without abnormal findings TDaP Immunization Today Z23 - Encounter for immunization Medications: New doxycycline hyclate take twice per day x 21 days, then take 1 tab daily 100 mg PO DIRECTED 111 caps 0RF Refilled olmesartan 20 mg PO QPM 90 tabs 1RF omeprazole 20 mg PO DAILY 90 caps 2RF Acid Reflux 90 days K21.9 - Gastro-esophageal reflux disease without esophagitis amlodipine 5 mg PO DAILY 90 tabs 1RF prazosin 1 mg PO BEDTIME 90 caps 2RF Discontinued fluticasone propionate 50 mcg/actuation administer into each nostril Discontinued Reason: Patient Completed Course 1 spray intranasal BID 16 grams 7RF Patient Instructions: Patient Instructions - Take all prescribed medications as directed. - Use sunscreen liberally and reapply frequently when exposed to sunlight. - Follow the home care regimen for hydradenitis, including the use of Daken's wash. - Schedule annual check-up and communicate via the portal for urgent care needs. - Follow up in case of severe reactions or emergence of new symptoms. Health screenings for men You should visit your health care provider regularly, even if you feel healthy. The purpose of these visits is to: Screen for medical issues Assess your risk for future medical problems Encourage a healthy lifestyle Update vaccinations and other preventive care services Help you get to know your provider in case of an illness Information Even if you feel fine, you should still see your provider for regular checkups. These visits can help you avoid problems in the future. For example, the only way to find out if you have high blood pressure is to have it checked regularly. High blood sugar and high cholesterol level also may not have any symptoms in the early stages. Simple blood tests can check for these conditions. There are specific times when you should see your provider or receive specific health screenings. The [place] Preventive Services Task Force publishes a list of recommended screenings. Below are screening guidelines for men ages 40 to 64. BLOOD PRESSURE SCREENING Have your blood pressure checked at least once every year. Watch for blood pressure screenings in your area. Ask your provider if you can stop in to have your blood pressure checked. Ask your provider if you need your blood pressure checked more often if: You have diabetes, heart disease, kidney problems, or are overweight or have certain other health conditions You have a first-degree relative with high blood pressure You are Black Your blood pressure top number is from 120 to 129 mm Hg, or the bottom number is from 70 to 79 mm Hg If the top number is 130 mm Hg or greater or the bottom number is 80 mm Hg or greater, this is considered stage 1 hypertension. Schedule an appointment with your provider to learn how you can lower your blood pressure. Effects of age on blood pressure CHOLESTEROL SCREENING Cholesterol screening should begin at age 35 for men with no known risk factors for coronary heart disease. Repeat cholesterol screening should take place: Every 5 years for men with normal cholesterol levels More often if changes occur in lifestyle (including weight gain and diet) More often if you have diabetes, heart disease, kidney problems, or certain other conditions COLORECTAL CANCER SCREENING If you are under age 45, talk to your provider about getting screened. You may need to be screened if you have a strong family history of colon cancer or polyps. Screening may also be considered if you have risk factors such as a history of inflammatory bowel disease or polyps. If you are age 45 to 75, you should be screened for colorectal cancer. There are several screening tests available: A stool-based fecal occult blood (gFOBT) or fecal immunochemical test (FIT) every year A stool sDNA test every 1 to 3 years Flexible sigmoidoscopy every 5 years or every 10 years with stool testing FIT done every year CT colonography (virtual colonoscopy) every 5 years Colonoscopy every 10 years You may need a colonoscopy more often if you have risk factors for colorectal cancer, such as: Ulcerative colitis A personal or family history of colorectal cancer A history of growths in your colon called adenomatous polyps DENTAL EXAM Go to the dentist once or twice every year for an exam and cleaning. Your dentist will evaluate if you have a need for more frequent visits. DIABETES SCREENING All adults who do not have risk factors for diabetes should be screened starting at age 35 and repeated every 3 years. If you have other risk factors for diabetes, such as a first degree relative with diabetes, overweight or obesity, high blood pressure, prediabetes, or a history of heart disease, you may be tested more often. If you are overweight and have other risk factors, such as high blood pressure and are planning to become , screening is recommended. EYE EXAM Have an eye exam every 2 to 4 years ages 40 to 54 and every 1 to 3 years ages 55 to 64. Your provider may recommend more frequent eye exams if you have vision problems or glaucoma risk. Have an eye exam that includes an examination of your retina (back of your eye) at least every year if you have diabetes. IMMUNIZATIONS Commonly needed vaccines include: Flu shot: get one every year COVID-19 vaccine: ask your provider what is best for you Tetanus-diphtheria and acellular pertussis (Tdap) vaccine: have as one of your tetanus-diphtheria vaccines if you did not receive it as an adolescent Tetanus-diphtheria: have a booster (or Tdap) every 10 years Varicella vaccine: receive 2 doses if you never had chickenpox or the varicella vaccine and were born in 1980 or after Hepatitis B vaccine: receive 2, 3, or 4 doses, depending on your exact circumstances, if you did not receive these as a child or adolescent, until age 59 Shingles (herpes zoster) vaccine: at or after age 50 Ask your provider if you should receive other immunizations, especially if you have certain medical conditions, such as diabetes or are at increased risk for some diseases such as pneumonia. INFECTIOUS DISEASE SCREENING Screening for hepatitis C: all adults ages 18 to 79 should get a one-time test for hepatitis C. Screening for human immunodeficiency virus (HIV): all people ages 15 to 65 should get a one-time test for HIV. Depending on your lifestyle and medical history, you may need to be screened for infections such as syphilis, chlamydia, and other infections. LUNG CANCER SCREENING You should have an annual screening for lung cancer with low-dose computed tomography (LDCT) if: You are age 50 to 80 years AND You have a 20 pack-year smoking history AND You currently smoke or have quit within the past 15 years OSTEOPOROSIS SCREENING If you are age 50 to 64 and have risk factors for osteoporosis, you should discuss screening with your provider. Risk factors can include long-term steroid use, low body weight, smoking, heavy alcohol use, having a fracture after age 50, or a family history of hip fracture or osteoporosis. Osteoporosis PHYSICAL EXAM All adults should visit their provider from time to time, even if they are healthy. The purpose of these visits is to: Screen for diseases Assess risk of future medical problems Encourage a healthy lifestyle Update vaccinations and other preventive care services Maintain a relationship with a provider in case of an illness Your height, weight, and body mass index (BMI) should be checked at every exam. During your exam, your provider may ask you about: Depression and anxiety Diet and exercise Alcohol and tobacco use Safety, such as use of seat belts and smoke detectors Your medicines and risk for interactions PROSTATE CANCER SCREENING If you're 55 through 69 years old, before having the test, talk to your provider about the pros and cons of having a PSA test. Ask about: Whether screening decreases your chance of dying from prostate cancer. Whether there is any harm from prostate cancer screening, such as side effects from testing or overtreatment of cancer when discovered. Whether you have a higher risk of prostate cancer than others. If you are age 55 or younger, screening is not generally recommended. You should talk with your provider about if you have a higher risk for prostate cancer. Risk factors include: Having a family history of prostate cancer (especially a brother or father) Being If you choose to be tested, the PSA blood test is repeated over time (yearly or less often), though the best frequency is not known. Prostate examinations are no longer routinely done on men with no symptoms. Prostate cancer SKIN EXAM Your provider may check your skin for signs of skin cancer, especially if you're at high risk. People at high risk include those who have had skin cancer before, have close relatives with skin cancer, or have a weakened immune system. TESTICULAR EXAM The US Preventive Services Task Force (USPSTF) now recommends against performing testicular self-exams. Doing testicular self-exams has been shown to have little to no benefit.
[2025-03-10 11:59] VITALS: BP 140/80; PULSE 75; RESP 13; TEMP 36.2; O2SAT 99; BMI 32.6
--- OUTSIDE RECORDS SUMMARY | 2025-03-10 13:01 | XMS_ITS | Clinical Summary ---
Author Organization [facility] Facility Address [address] [place] [address], [place] [address] Care Team Providers Care Patient Access Associate Name Role Phone Fariba Bella WARPER TENDER Primary Care Provider Candace vailable Allergies No known active allergies Medications amLODIPine (NORVASC) 5 MG tablet Take 5 mg by mouth 1 (one) time each day Active prazosin (MINIPRESS) 1 MG capsule Take 1 mg by mouth every night Active omeprazole (PriLOSEC) [address] capsule Take 20 mg by mouth 1 (one) time each day Do not crush or chew. Active olmesartan (BENICAR) 20 MG tablet Take 20 mg by mouth 1 (one) time each day Active Cholecalciferol (Vitamin D) 25 MCG (1000 UT) tablet Take 1,000 mcg by mouth 1 (one) time each day Active cyanocobalamin (VITAMIN B-12) 100 MCG tablet Take 50 mcg by mouth 1 (one) time each day Active Active Problems Problem Noted Date Diagnosed Date History of malignant neoplasm of esophagus 11/0304/04/2023 Overview (04/04/2023): Diagnosed at age 15-16. Had biopsy and surgery at [facility] Last GI appt 12/09/21 PAST EGD/COLONOSCOPY: 2007 EGD was performed by Dr. Borges: Erythema and friability, esophagitis with erosions/exudate involving the mucosa of the esophagus with contact bleeding. Biopsies showed focal active esophagitis and erosions. Gastric biopsies were negative for Helicobacter pylori. Repeat EGD 09/13/21 Depressive disorder 03/06/2021 04/04/2023 Hypertensive disorder 03/06/2021 04/04/2023 Posttraumatic stress disorder 03/06/2021 Social History Tobacco Use Types Packs/Day Years Used Date Smoking Tobacco: Never Smokeless Tobacco: Never Tobacco Cessation:Counseling Given: Not Answered Alcohol Use Standard Drinks/Week Comments Yes 0 (1 standard drink = 0.6 oz pur e alcohol) Sex and Gender Information Value Date Recorded Sex Assigned at Not on file Legal Sex Male 1:29 PM EDT Gender Identity Not on file Sexual Orientation Not on file Last Filed Vital Signs Vital Sign Reading Time Taken Comments Blood Pressure 122/69 04/04/2023 4:30 PM EDT Pulse 75 04/04/2023 4:30 PM EDT Temperature - - Respiratory Rate - - Oxygen Saturation - - Inhaled Oxygen Concentration - - Weight 93 kg (205 lb) 04/04/2023 4:30 PM EDT Height - - Body Mass Index - - Plan of Treatment Health Maintenance Due Date Last Done Comments Pneumococcal Vaccine: Peds ( 0 to 5 Years) and At-Risk Patients (6 to 49 Years) (1 of 2 - PCV) 2009 Influenza Vaccine (#1) 2025 11/03/2022 Hepatitis B Vaccine Completed 05/27/1996, 12/08/1995, 11/08/1995 Insurance Medicaid [place] Care Teams Patient Access Associate Relationship Specialty Start Date End Date Fariba Bella FNP PCP - General 11/14/22
--- OUTSIDE RECORDS SUMMARY | 2025-03-10 13:01 | XMS_ITS | Encounter Summary ---
Author Organization [employer] Address [address] [place] [address] [address] [place] [address] Care Team Providers Care Director Acute Name Role Phone Tawny Dukes Primary Care Provider [phone] Shannon Berkowitz NP Primary Care Provider [phone] Reason for Referral * Imaging (Routine) - Closed Specialty Diagnoses / Procedures Referred By Dylan t Referred To Contact Radiology Diagnoses Abnormal CT scan, liver Procedures US Abdomen Complete Tawny Dukes FNP [address] [place] [address] Phone: tel: fax: [address] Phone: tel: fax: Referral ID Status Reason Start Date Expiration Date Visits Re quested Visits Authorized [id number] Closed 09/29/2023 09/28/2024 1 1 Encounter Details Date Type Department Care Team (Late st Contact Info) Description 09/29/2023 Orders Only [facility] [address] [place] [address] Tawny Dukes FNP [address] [place] [address] scan, liver (Primary Dx) Social History Tobacco Use Types Packs/Day Years Used Date Smoking Tobacco: Never Smokeless Tobacco: Never Alcohol Use Standard Drinks/Week Comments Yes 0 (1 standard drink = 0.6 oz pur e alcohol) occassional Depression Answer Date Recorded Patient Health Questionnaire-9 Score 5 11/03/2022 Housing Stability Answer Date Recorded What is your housing situation today? I have naty nuno 06/13/[address] you li ve. Do you have problems with any of the following? None of the above 06/13/2023 Food Insecurity Answer Date Recorded Within the past 12 months, y ou worried that your food would run out before you got money to buy more: Never True 06/13/2023 Within the past 12 months,th e food you bought just didn't last and you didn't have enough money to get more: Never True Transportation Answer Date Recorded In the past 12 months, has l ack of transportation kept you from medical appts, meetings, work or from getting things needed for daily living? No 06/13/2023 Utilities Answer Date Recorded In the past 12 months, has t he electric, gas, oil or water company threatened to shut off services in your home? No 06/13/2023 Depression Answer Date Recorded Patient Health Questionnaire-2 Score 2 11/03/2022 Sex and Gender Information Value Date Recorded Sex Assigned at Male 06/13/2022 10:24 AM EDT Legal Sex Male 10:24 AM EDT Gender Identity Choose not to disclose 10:24 AM EDT Sexual Orientation Straight 06/13/2022 10 :24 AM EDT documented as of this encounter Plan of Treatment Not on file documented as of this encounter Procedures Procedure Name Priority Date/Time Associated Diagnosis Comments US ABDOMEN COMPLETE Routine 10/30/2023 1 1:[address] scan, liver documented in this encounter Results * US Abdomen Complete (10/30/2023 11:30 AM EDT) Anatomical Region Laterality Modality Abdomen Ultrasound 10/30/2023 11:3 0 AM EDT Narrative 11/01/2023 11:16 AM EDT [address] [address] Ultrasound Report Signed Patient: Pro Howard MR#: [id number] : 1990 Acct:[id number] Age/Sex: 33 / M ADM Date: 10/30/23 Loc: HO.US Attending Dr: Tawny Dukes NP Ordering Physician: Tawny Dukes NP Date of Service: 10/30/23 Procedure(s): US abdomen complete Accession Number(s): [id number] cc: Tawny Dukes NP; Fariba Grewal INSTRUCTOR KNITTING EXAMINATION: US ABDOMEN COMPLETE CLINICAL INFORMATION: Liver lesion. COMPARISON: CT urogram 07/19/2023. Ultrasound abdomen complete 12/30/2022. TECHNIQUE: Real-time imaging of the abdominal viscera. FINDINGS: PANCREAS: Normal. ABDOMINAL AORTA: The proximal, mid, and distal segments are normal in caliber. INFERIOR VENA CAVA: Visualized portions are normal. LIVER: The liver is normal in size. The liver contour is normal. Parenchymal echogenicity is normal. 6 mm well-circumscribed hyperechoic lesion in the superior left lobe and 2.5 cm well-circumscribed hyperechoic lesion in the medial right hepatic lobe. There is no intrahepatic biliary duct dilatation seen. GALLBLADDER: The gallbladder is physiologically distended without evidence of stones, sludge, polyps, wall thickening or pericholecystic fluid. COMMON BILE DUCT: Normal in caliber measuring 0.3 cm in diameter. RIGHT KIDNEY: Normal. No hydronephrosis. No renal calculi or focal parenchymal lesions. The kidney measures 11.4 cm in maximum dimension. LEFT KIDNEY: Normal. No hydronephrosis. No renal calculi or focal parenchymal lesions. The kidney measures 11.6 cm in maximum dimension. SPLEEN: Normal. The spleen measures 11.4 cm in maximum dimension. FREE FLUID: None. US/US abdomen complete IMPRESSION: Findings consistent with hepatic hemangiomas. No follow-up imaging is recommended. Dictated By: Isaiah Victor MD Signed By: <Electronically signed by Isaiah Victor MD in OV> 11/01/23 1112 DD/ 1130 TD/TT: Billet Heater: MANOHAR Procedure Note Donotuseinterpreter, Image - 11/01/[address] [address] Ultrasound Report Signed Patient: Pro HowardMR#: [id number] : 1990Acct:[id number] Age/Sex: 33 / MADM Date: 10/30/23 Loc: HO.US Attending Dr: Tawny Dukes NP Ordering Physician: Tawny Dukes NP Date of Service: 10/30/23 Procedure(s): US abdomen complete Accession Number(s): [id number] cc: Tawny Dukes NP; Fariba Grewal INSTRUCTOR KNITTING EXAMINATION: US ABDOMEN COMPLETE CLINICAL INFORMATION: Liver lesion. COMPARISON: CT urogram 07/19/2023. Ultrasound abdomen complete 12/30/2022. TECHNIQUE: Real-time imaging of the abdominal viscera. FINDINGS: PANCREAS: Normal. ABDOMINAL AORTA: The proximal, mid, and distal segments are normal in caliber. INFERIOR VENA CAVA: Visualized portions are normal. LIVER: The liver is normal in size. The liver contour is normal. Parenchymal echogenicity is normal. 6 mm well-circumscribed hyperechoic lesion in the superior left lobe and 2.5 cm well-circumscribed hyperechoic lesion in the medial right hepatic lobe. There is no intrahepatic biliary duct dilatation seen. GALLBLADDER: The gallbladder is physiologically distended without evidence of stones, sludge, polyps, wall thickening or pericholecystic fluid. COMMON BILE DUCT: Normal in caliber measuring 0.3 cm in diameter. RIGHT KIDNEY: Normal. No hydronephrosis. No renal calculi or focal parenchymal lesions. The kidney measures 11.4 cm in maximum dimension. LEFT KIDNEY: Normal. No hydronephrosis. No renal calculi or focal parenchymal lesions. The kidney measures 11.6 cm in maximum dimension. SPLEEN: Normal. The spleen measures 11.4 cm in maximum dimension. FREE FLUID: None. US/US abdomen complete IMPRESSION: Findings consistent with hepatic hemangiomas. No follow-up imaging is recommended. Dictated By: Isaiah Victor MD Signed By: <Electronically signed by Isaiah Victor MD in OV> 11/01/23 1112 DD/ 1130 TD/TT: Billet Heater: MANOHAR us Tawny Dukes INSTRUCTOR KNITTING IMG US PROCEDURES Final Result documented in this encounter Visit Diagnoses Diagnosis Abnormal CT scan, liver- Primary documented in this encounter Additional Health Concerns Assessment Noted Time PHQ-9 Depression Total Score: 5 11/04/19 23 10:56 AM EDT documented as of this encounter Care Teams Director Acute Relationship Specialty Start Date End Date Tawny Dukes FNP [address] [place] [address] PCP - General Family Medicine 09/11/23 02/08/24 Shannon Berkowitz NP [address] [place] [address] PCP - General Family Medicine 02/09/24 documented as of this encounter
== END 2025-03-10 12:48 | disposition home or self-care (01) ==
LOC: HO.HMCFM 11:53
PROVIDERS: PCP Nurse Practitioner Family; Visit Provider Nurse Practitioner Family
DX: Z00.00 Encounter for general adult medical examination without abnormal findings (principal); I10 Essential (primary) hypertension; F33.1 Major depressive disorder, recurrent, moderate; E66.09 Other obesity due to excess calories; Z68.30 Body mass index [BMI] 30.0-30.9, adult; E78.00 Pure hypercholesterolemia, unspecified; F41.1 Generalized anxiety disorder; K21.00 Gastro-esophageal reflux disease with esophagitis, without bleeding; L55.9 Sunburn, unspecified; Z23 Encounter for immunization; L73.2 Hidradenitis suppurativa; Z09 Encounter for follow-up examination after completed treatment for conditions other than malignant neoplasm

== ENCOUNTER → 2025-03-10 11:52 | Outpatient (BNVA) | payer OTHER, SELFPAY | PROVIDERS: PCP Nurse Practitioner Family; Visit Provider Nurse Practitioner Family | DX: Z00.00 Encounter for general adult medical examination without abnormal findings (principal); F41.1 Generalized anxiety disorder; K21.9 Gastro-esophageal reflux disease without esophagitis; I10 Essential (primary) hypertension; E66.9 Obesity, unspecified; L73.2 Hidradenitis suppurativa; F33.1 Major depressive disorder, recurrent, moderate; E78.00 Pure hypercholesterolemia, unspecified; E66.09 Other obesity due to excess calories; K21.00 Gastro-esophageal reflux disease with esophagitis, without bleeding; L55.9 Sunburn, unspecified; Z23 Encounter for immunization; Z09 Encounter for follow-up examination after completed treatment for conditions other than malignant neoplasm; Z68.30 Body mass index [BMI] 30.0-30.9, adult | CPT/HCPCS: 90471; 90715; 96127; 99212; 99395 ==

== ENCOUNTER 2025-03-10 12:55 | Outpatient (REF) | payer OTHER, SELFPAY ==
[2025-03-10 15:07] LABS: Hemoglobin A1C 133.6806 umol/L; Total Hemoglobin (HGBA1C) 3682.1627 umol/L
[2025-03-10 15:38] LABS: Cholesterol 190 mg/dL (<200); HDL Cholesterol 37 mg/dL (>40); Triglycerides 135 mg/dL (<150)
[2025-03-10 15:49] LABS: Microalbum/Creatinine Ratio Ur 5.4 ug/mg cr (<30)
[2025-03-10 16:01] LABS: Folate 12.3 ng/mL (> or = 4.0); Vitamin B12 291 pg/mL (200-900)
== END 2025-03-10 12:56 | disposition home or self-care (01) ==
LOC: HO.WFDLDS 12:55
PROVIDERS: Visit Provider Nurse Practitioner Family
DX: Z00.00 Encounter for general adult medical examination without abnormal findings (principal); I10 Essential (primary) hypertension; E78.00 Pure hypercholesterolemia, unspecified
CPT/HCPCS: 36415; 80061; 82043; 82570; 82607; 82746; 83036; 84443

== ENCOUNTER 2025-04-21 11:11 | Outpatient (REF) | payer OTHER, SELFPAY ==
[2025-04-22 11:37] LABS: Appearance Urine Cloudy; Glucose Urine UA Negative (Negative); PH 6.0 (5.0-9.0); Specific Gravity - Urine 1.025 (1.005-1.025)
--- OUTSIDE RECORDS SUMMARY | 2025-04-22 13:43 | XMS_ITS | Encounter Summary ---
Author Organization [employer] Address [address] [place] [address] [address] [place] [address] Care Team Providers Care Supervisor Tumblers Name Role Phone Fariba Grewal Primary Care Provider Candace Fadumo Barroso SOLUTION DEVELOPER Primary Care Provider [phone] Tawyn Dukes CIRCULAR KNITTER HELPER Primary Care Provider [phone] Shannon Berkowitz SOLUTION DEVELOPER Primary Care Provider [phone] Encounter Details Date Type Department Care Team (Late st Contact Info) Description 12/26/2022 Telephone [facility] MEDICINE [address] [place] [id number] Fariba Grewal FNP Social History Tobacco Use Types Packs/Day Years Used Date Smoking Tobacco: Never Smokeless Tobacco: Never Depression Answer Date Recorded Patient Health Questionnaire-9 Score 5 11/03/2022 Depression Answer Date Recorded Patient Health Questionnaire-2 [...] on file documented as of this encounter Visit Diagnoses Not on filedocumented in this encounter Additional Health Concerns Assessment Noted Time PHQ-9 Depression Total Score: 5 11/04/19 10:56 AM EDT documented as of this encounter Care Teams Supervisor Tumblers Relationship Specialty Start Date End Date Fariba Grewal FNP PCP - General Family Medicine 04/08/22 05/22/23 Fadumo Matthews NP [address] [place] [address] PCP - General Family Medicine 05/23/23 09/10/23 Tawny Dukes FNP [address] [place] [address] PCP - General Family Medicine 09/11/23 02/08/24 Shannon Berkowitz NP [address] [place] [address] PCP - General Family Medicine 02/09/24 documented as of this encounter
--- OUTSIDE RECORDS SUMMARY | 2025-04-22 13:43 | XMS_ITS | Clinical Summary ---
Author Organization [facility] Facility Address [address] [place] [address], [place] [address] Care Team Providers Care Tactical Air Control Party Name Role Phone Fariba Bella LINE SERVICE PERSON Primary Care Provider Candace vailable Allergies No [...] age 15-16. Had biopsy and surgery at [facility] Last GI appt 12/09/21 PAST EGD/COLONOSCOPY: 2007 [...] Insurance Medicaid [place] Care Teams Tactical Air Control Party Relationship Specialty Start Date End Date Fariba Bella FNP PCP - General 11/14/22
--- OUTSIDE RECORDS SUMMARY | 2025-04-22 13:43 | XMS_ITS | Encounter Summary ---
Author Organization [employer] Address [address] [place] [address] [address] [place] [address] Care Team Providers Care Vice President For Instruction Name Role Phone Tawny Dukes Primary Care Provider [phone] Shannon Berkowitz NP Primary Care Provider [phone] Reason for Referral * Imaging (Routine) - Closed Specialty Diagnoses / Procedures Referred By Dylan t Referred To Contact Radiology Diagnoses Abnormal CT scan, liver Procedures US Abdomen Complete Tawny Dukes FNP [address] [place] [address] Phone: tel: fax: [address] Phone: tel: fax: Referral ID Status Reason Start Date Expiration Date Visits Re quested Visits Authorized [id number] Closed 09/29/2023 09/28/2024 1 1 Encounter Details Date Type Department Care Team (Late st Contact Info) Description 09/29/2023 Orders Only [facility] [address] [place] [address] Tawny Dukes FNP [address] [place] [address] scan, liver (Primary Dx) Social [...] AM EDT Narrative 11/01/2023 11:16 AM EDT [address] [address] Ultrasound Report Signed Patient: Pro Howard MR#: [id number] : 1990 Acct:[id number] Age/Sex: 33 / M ADM Date: 10/30/23 Loc: HO.US Attending Dr: Tawny Dukes NP Ordering Physician: Tawny Dukes NP Date of Service: 10/30/23 Procedure(s): US abdomen complete Accession Number(s): [id number] cc: Tawny Dukes NP; Fariba Grewal VENTILATING EXPERT EXAMINATION: US ABDOMEN COMPLETE CLINICAL INFORMATION: Liver [...] in OV> 11/01/23 1112 DD/ 1130 TD/TT: Help Desk Administrator: MANOHAR Procedure Note Donotuseinterpreter, Image - 11/01/[address] [address] Ultrasound Report Signed Patient: Pro HowardMR#: [id number] : 1990Acct:[id number] Age/Sex: 33 / MADM Date: 10/30/23 Loc: HO.US Attending Dr: Tawny Dukes NP Ordering Physician: Tawny Dukes NP Date of Service: 10/30/23 Procedure(s): US abdomen complete Accession Number(s): [id number] cc: Tawny Dukes NP; Fariba Grewal VENTILATING EXPERT EXAMINATION: US ABDOMEN COMPLETE CLINICAL INFORMATION: Liver [...] in OV> 11/01/23 1112 DD/ 1130 TD/TT: Help Desk Administrator: MANOHAR us Tawny Dukes VENTILATING EXPERT IMG US PROCEDURES Final Result documented in this encounter Visit Diagnoses Diagnosis Abnormal CT scan, liver- Primary documented in this encounter Additional Health Concerns Assessment Noted Time PHQ-9 Depression Total Score: 5 11/04/19 23 10:56 AM EDT documented as of this encounter Care Teams Vice President For Instruction Relationship Specialty Start Date End Date Tawny Dukes FNP [address] [place] [address] PCP - General Family Medicine 09/11/23 02/08/24 Shannon Berkowitz NP [address] [place] [address] PCP - General Family Medicine 02/09/24 documented as of this encounter
--- OUTSIDE RECORDS SUMMARY | 2025-04-22 13:43 | XMS_ITS | Clinical Summary ---
Author Organization [employer] Address [address] [place] [address] 7 [place] [address] Care Team Providers Care Senior Foreman Name Role Phone Shannon Berkowitz NP Primary Care Provider [phone] Allergies No known active allergies Medications prazosin (Minipress) 1 MG capsuleIndication s:Primary hypertension Take 1 capsule (1 mg) by mouth at bedtime. 90 capsule 3 3 Active B-12, Methylcobalamin, [address] ONE TABLET UNDER THE TONGUE AND ALLOW TO DISSOLVE FOR AT LEAST 30 SECONDS BEFORE SWALLOWING EVERY DAY 3 Active cholecalciferol (Vitamin D-3) 250 MCG (78973 UT) capsule TAKE 1 CAPSULE BY MOUTH 2 TIMES PER WEEK 3 Active omeprazole (PriLOSEC) [address] capsuleIndication s:Heartburn Take 1 capsule (20 mg) by mouth before breakfast. Do not crush or chew. 90 capsule 1 3 Active olmesartan (Benicar) 20 MG tabletIndications :Primary hypertension Take 1 tablet (20 mg) by mouth in the morning. 90 tablet 1 3 Active amLODIPine (Norvasc) 5 MG tabletIndications :Primary hypertension Take 1 tablet (5 mg) by mouth in the morning. 90 tablet 1 3 Active Active Problems Problem Noted Date Diagnosed Date Health care maintenance 03/22/2023 Overview (03/22/2023): Routine Health Maintenance: Immunizations: Tdap 03/03/23 HIV: Nonreactive 03/13/21 Hep C: Nonreactive 12/08/22 Hepatitis B: surface antibodies reactive 12/08/22 Colonoscopy: Not due PSA: Per ACS shared decision-making of uncertainties, risks, and potential benefits . Screening start age 50 average risk. Age 45 if high risk. Eye: Discuss next visit Dental: Discuss next visit Heartburn 02/03/2023 Overview (02/03/2023): Treats w/ Omeprazole 20 mg Was told by mother he had esophageal cancer however, EGD on 09/13/21 No evidence of past esophageal surgery or esophageal cancer. (Its possible that pt had a benign papilloma which was removed endoscopically with snare Polypectomy) No hx of Esophageal cancer Assessment & Plan (02/14/2023 9:05 PM EDT): Continue omeprazole Encouraged to avoid triggers F/u 1 month or sooner PRN Depressive disorder 03/06/2021 Overview (02/14/2023): recently stopped therapy as his mental health is improving with exercise Assessment & Plan (02/14/2023 9:04 PM EDT): F/u PRN Hypertensive disorder 03/06/2021 Overview (04/07/2023): Seen [facility] for HTN urgency in the past Taking medications as prescribed: amlodipine 5mg, olmesartan 20 mg, prazosin 1mg BP checks at home every few days. 150s-160s systolic. Denies red flag signs Denies substance use Referred nephrology [facility] [place] for further eval of secondary hypertension CMP 03/03/23 WNL Assessment & Plan (04/07/2023 12:37 PM EDT): Continue olmesartan 20 mg daily; amlodipine 5 mg Recent Nephrology appt 04/04/23, labs pending were ordered to [facility] Repeat labs ordered [facility], so he could get labs performed here Will fax results to [facility]. Pt agreed with plan. F/u 3 month or sooner PRN Assessment & Plan (03/22/2023 11:31 PM EDT): Rx olmesartan 20 mg daily Discontinue enalapril 5 mg Decrease amlodipine dose from 10 mg to 5 mg Check CMP to confirm kidney function WNL F/u 1 month or sooner PRN Assessment & Plan (02/14/2023 9:09 PM EDT): Will increase Amlodipine to 10 mg 1 tablet daily Continue other medications Check at home BID Referred Nephrology 11/03/22 for eval Unclear if he has met w/ specialist yet F/u 1 month or sooner PRN Posttraumatic stress disorder 03/06/2021 Overview (04/07/2023): Nightmares r/t PTSD Treating with prazosin 1 mg + marijuana F/U PRN Resolved Problems Problem Noted Date Diagnosed Date Resolved Date History of esophageal cancer 11/03/2022 02/03/2023 Overview (11/03/2022): Diagnosed at age 15-16. Had biopsy and surgery at [facility] Last GI appt 12/09/21 PAST EGD/COLONOSCOPY: 2007 EGD was performed by Dr. Borges: Erythema and friability, esophagitis with erosions/exudate involving the mucosa of the esophagus with contact bleeding. Biopsies showed focal active esophagitis and erosions. Gastric biopsies were negative for Helicobacter pylori. Repeat EGD 09/13/21 Immunizations Immunization Administration Dates Next Due DTP 11/08/1995, 2,04/19/1991,1990,1990 Hep B, Adolescent or Pediatric 05/27/1996 Hep B, adult 12/08/1995,11/08/1995 Hib ([facility]) 01/08/1992 IPV 11/08/1995, 2,02/20/1991,1990 Influenza injectable quadriv alent preservative free 11/03/2022 MMR 09/14/1994,01/07/1992 Pfizer Covid-19 Vaccine 12+ Bivalent 11/03/2022 TD (adult), 2 Lf tetanus tox oid, preservative free, adsorbed 02/20/2003 Tdap 03/03/2023 Varicella 07/22/2011,10/28/1997 Family History Medical History Relation Name Comments Diabetes Maternal Grandmother Mental illness Mother Suicidality Mother Relation Name Status Comments Maternal Grandmother Mother Social History Tobacco Use Types Packs/Day Years [...] Orientation Straight 06/13/2022 10 :24 AM EDT Last Filed Vital Signs Vital Sign Reading Time Taken Comments Blood Pressure 159/100 06/13/2023 5:30 PM EDT Pulse 77 06/13/2023 5:30 PM EDT Temperature 36.7 C (98 F) 06/13/2023 5:30 PM EDT Respiratory Rate 16 06/13/2023 5:30 PM EDT Oxygen Saturation 100% 06/13/2023 5:30 PM EDT Inhaled Oxygen Concentration - - Weight 92.1 kg (203 lb) 06/13/2023 5:30 PM EDT Height 175.3 cm (5' 9 ) 06/13/2023 5:30 PM EDT Body Mass Index 29.98 06/13/2023 5:30 PM EDT Plan of Treatment Health Maintenance Due Date Last Done Comments Disability Screening 1990 Alcohol/Substance Use Screening 2002 Family Planning (PISQ) 2005 HPV Vaccines (1 - 3-dose series) 2005 Depression Screening 11/04/2023 11/03/2022, 11/04/19 SDOH Screening 11/04/2023 11/03/2022 Tobacco Screening 06/13/2024 06/13/2023 COVID-19 Vaccine ( season) 2025 11/03/2022, 01/19/2021, 12/22/2020 Influenza Vaccine (#1) 2025 11/03/2022 Lipid Panel 11/04/2027 11/03/2022 DTaP/Tdap/Td Vaccines (7 - Td or Tdap) 03/03/2033 03/03/2023, 02/20/2003, 02/20/2003, Additional history exists Zoster Vaccines (1 of 2) 2040 RSV Patients and Patients Aged 60 years or older (1 - 1-dose 75+ series) 2065 HIB Vaccines Completed 01/08/1992 IPV Vaccines Completed 11/08/1995, 03/14, 02/20/1991, Additional history exists Hepatitis B Vaccines Completed 05/27/1996, 05/27/1996, 12/08/1995, Additional history exists HIV Screening Completed 03/05/2021, 03/05/2021 Hepatitis C Screening Completed 12/08/2022, 021 Hepatitis A Vaccines Aged Out No long er eligible based on patient's age to complete this topic Meningococcal B Vaccine Aged Out No l onger eligible based on patient's age to complete this topic Meningococcal Vaccine Aged Out No lizette jessica eligible based on patient's age to complete this topic Pneumococcal Vaccine: Pediatrics (0 to 5 Years) and At-Risk Patients (6 to 49) Years Aged Out No longer eligible based on patient's age to complete this topic RSV under 20 months Aged Out No longe r eligible based on patient's age to complete this topic Rotavirus Vaccines Aged Out No longer eligible based on patient's age to complete this topic Procedures Procedure Name Priority Date/Time Associated Diagnosis Comments HEPATITIS C ANTIBODY Routine 12/08/2022 12:41 PM EDT LIPID PANEL, STANDARD Routine 11/03/2022 12:07 PM EDT Health care maintenance HIV 1/2 ANTIGEN/ANTIBODY, FOURTH GENERATION W/RFL Routine 03/05/2021 2:55 PM EDT from Last 3 Months or Most Recently Relevant to Health Maintenance Results * Hepatitis C Ab (12/08/2022 12:41 PM EDT) Pathologist [facility] Hepatitis C Antibody Nonreactive Nonreactive [facility] Comment:Antibodies to HCV no t detected; does not exclude early acuteHCV infection. 12/08/2022 12:4 1 PM EDT 12/08/2022 12:41 PM EDT [facility] External Provider LAB BLO OD ORDERABLES Final Result Performing Organization Address City/State/[facility] Co de Phone Number [facility] [address] [place] [phone] * (ABNORMAL) Lipid Panel, Standard (11/03/2022 12:07 PM EDT) Cholesterol, Total 197 <200 mg/dL [facility] HDL Cholesterol 34(L) > OR = 40 mg/dL [facility] Triglycerides 226(H) <150 mg/dL [facility] Comment: If a non-fasting specimen was collected, consider repeat triglyceride testing on a fasting specimen if clinically indicated. Mateus et al. J. of Clin. Lipidol. 2015;9:129-169. LDL Cholesterol 127(H) mg/dL (calc) [facility] Comment: Reference range: <100 Desirable range <100 mg/dL for primary prevention; <70 mg/dL for patients with CHD or diabetic patients with > or = 2 CHD risk factors. LDL-C is now calculated using the Trinity calculation, which is a validated novel method providing better accuracy than the Friedewald equation in the estimation of LDL-C. Jerald BENOIT et al. SANDOR. 2013;310(19): 8480-6043 (http://education.Dubaki/faq/CZH410) Chol/HDLC Ratio 5.8(H) <5.0 (calc) [facility] Non-HDL Cholesterol 163(H) <130 mg/dL (calc) [facility] Comment: For patients with diabetes plus 1 major ASCVD risk factor, treating to a non-HDL-C goal of <100 mg/dL (LDL-C of <70 mg/dL) is considered a therapeutic option. Blood Venous blood specimen / Unknown 11/03/2022 12:07 PM EDT 11/03/2022 12:07 PM EDT Narrative [facility] - 11/04/2022 7:29 AM EDT FASTING:NO FASTING: NO us Fariba Grewal [facility] LAB BLOOD ORDERABLES Final Result Performing Organization Address City/[facility]/ZIP Co de Phone Number [facility] [address], [facility] [place] [address] [facility] [address] [place] [address] * HIV 1/2 ANTIGEN/ANTIBODY,FOURTH GENERATION W/RFL (03/05/2021 2:55 PM EDT) [facility] HIV-1/2 ANTIGEN AND ANTIBODIES, 4TH GENERATION W/ REFLEX TNP [facility] Comment: TEST NOT PERFORMED No serum received. 03/05/2021 2:55 PM EDT us Maria G Hammond CERAMICS TECHNICIAN LAB BLOOD ORDERABLES Final Resu lt [facility] [address] from Last 3 Months or Most Recently Relevant to Health Maintenance Insurance [facility] Care Teams Senior Foreman Relationship Specialty Start Date End Date Shannon Berkowitz NP [address] [place] [id number] PCP - General Family Medicine 02/09/24
== END 2025-04-21 11:12 | disposition home or self-care (01) ==
LOC: HO.LNP 11:11
PROVIDERS: Visit Provider Internal Medicine Hypertension Specialist
DX: I10 Essential (primary) hypertension (principal)
CPT/HCPCS: 81003

== ENCOUNTER 2025-04-24 09:58 | Outpatient (AMB) | payer OTHER, SELFPAY ==
[2025-04-24 10:02] VITALS: BP 144/74; PULSE 75; O2SAT 98; BMI 32.7
--- NOTE | 2025-04-24 10:02 | HO.NEPHOV ---
Vital Signs 04/24/25 10:02 04/24/25 10:10 Height 5 ft 8 in Weight 215 lb BMI 32.7 BP 144/74 H 130/80 Blood Pressure Location Lt brachial Lt brachial Position Sitting Sitting Pulse 75 Pulse Source Pulse Oximeter Pulse Oximetry (%) 98 Oxygen Delivery Method Room Air Intake Visit Reasons: 1 year f/u-LVM Candle Extrusion Machine Operator Required: No Accompanied by: Self / Same As Patient Allergies No Known Allergies Allergy (Verified 04/24/25 10:04) Medication List - Last Reconciled 04/24/25 by Darío Liu MD amlodipine 5 mg PO DAILY olmesartan 20 mg PO QPM omeprazole 20 mg PO DAILY 90 days prazosin 1 mg PO BEDTIME HPI Comments Details: Pro is a pleasant 33-year-old man who was diagnosed with hypertension at least 5 years ago. He was on medication for a while then he stopped taking his medication due to insurance issues and he did not have PCP. He has been on amlodipine for quite some time. About a year ago VASQUEZ inhibitor has been added. He has been referred for evaluation and management of hypertension. Eriberto has a history of gross hematuria which was painless. He underwent CT urogram which was unremarkable. He did not have urologic evaluation at the time. 03/05/2024. Blood pressure has been suboptimal. 03/12 Underwent ABPM 04/25/24 Tolerating Olmesartan in evening ;Home BP OK 04/24/25 The patient is a 34-year-old male presenting with hypertension management. Blood pressure is controlled with amlodipine and olmesartan, with no side effects reported. The patient had an arm infection requiring hospitalization and antibiotics. He also experienced a severe sunburn requiring recovery. Weight fluctuated from 183 to 215 pounds due to reduced activity during recovery. Currently working on weight reduction. Reports ankle swelling, primarily in the right ankle, with soreness upon activity. Reduced salt intake to manage swelling. Resumed low-impact exercises like walking. Medical History: - Hypertension Medications: - Amlodipine for hypertension - Olmesartan for hypertension Social History: - Engages in low-impact exercises such as walking - Reduced salt intake to manage fluid retention - Experienced weight fluctuations, currently working on weight reduction [facility] Medical History (Updated 03/10/25 @ 12:37 by Kamilah Raymundo, [facility]) Hypertension Depression Anxiety PTSD (post-traumatic stress disorder) GERD (gastroesophageal reflux disease) Surgical History History of incision and drainage (~09/2024) History of esophageal surgery History of esophagogastroduodenoscopy (EGD) Family History Maternal Grandmother Diabetes Mother Chronic mental illness Social History Housing: Apartment Alcohol intake: current Alcohol intake frequency: holidays/special occasions only Patient Tobacco Use Status: Never used Tobacco e-Cigarette/Vaping Use: Never Used service: No Current occupational status: employed 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 Cognitive needs: No Hearing needs: Yes Vision needs: Yes Physical Exam Vital Signs: Last Vital Signs Pulse 75 04/24/25 10:02 BP 130/80 04/24/25 10:10 Pulse Ox 98 04/24/25 10:02 Oxygen Delivery Method Room Air 04/24/25 10:02 BMI result Body Mass Index 32.7 Const General: comfortable; No acute distress Orientation/consciousness: patient oriented x3 Eyes General: appearance normal, both eyes and all related structures Visual Alves: normal visual alves by confrontation Neck Neck: Yes supple and Yes no JVD Resp Effort & Inspection: normal respiratory effort and respiratory effort not decreased Auscultation: rhonchi Cardio Palpation: no palpable S3 and no palpable S4 Heart sounds: no rubs GI Inspection: Yes normal to inspection Palpation (GI): Soft to palpation Percussion: Yes normal to percussion Auscultation: normal bowel sounds General: Yes no CVA tenderness Back/Spine/Pelvis Back: no CVA tenderness Skin General skin exam: no petechiae and no purpura Neuro General: patient oriented x3 and no focal motor deficits Extrem General: No clubbing and No edema Results Reviewed Nephrology Results: Urine Protein, (Neg-Trace) Negative mg/dL 04/21/25 Urine Creatinine 109.62 mg/dL 03/10/25 Assessment & Plan Assessment & Plan (1) Hypertension: Code(s): I10 - Essential (primary) hypertension Category: Medical Qualifiers: Hypertension type: unspecified Qualified Code(s): I10 - Essential (primary) hypertension Plan 33-year-old man with hypertension. Renal function is normal at this time. Serum electrolytes were normal. Blood pressure 24 hour ABPM : Average 24 hr BP of 131/85 Nocturnal dipping of 10 mmHg Morning readings are elevated He takes both Amlodipine and Olmesartan around 10 AM This a componenet of superimposed White coat effect as well Keep Olmesartan 20 mg Q PM and Keep same dose of AMlodipine Encouraged to monitor BP At home atleast twice a week Renal function is stable. Urinalysis was benign without any protein or blood. Urine specific gravity was elevated primarily due to volume depletion I have encouraged him to increase his p.o. fluid intake. He should continue with a low-salt diet given the history of hypertension. He has a history of gross hematuria. But imaging study was unremarkable at the time. If it happens again he would require further urological evaluation. Orders: Orders Basic Metabolic Panel 1 Year I10 - Essential (primary) hypertension UA and rflx microscopic 1 Year I10 - Essential (primary) hypertension Coding Level of Care Code Est Pt Level 4 (08271) Diagnoses Hypertension, unspecified type I10 Hypertension type: unspecified
[2025-04-24 10:10] VITALS: BP 130/80
--- OUTSIDE RECORDS SUMMARY | 2025-04-24 11:58 | XMS_ITS | Clinical Summary ---
Author Organization [facility] Facility Address [address] [place] [address], [place] [address] Care Team Providers Care Report Specialist Name Role Phone Fariba Bella PERSONAL BANKING REPRESENTATIVE Primary Care Provider Candace vailable Allergies No [...] age [age]. Had biopsy and surgery at [facility] Last GI appt 12/09/21 PAST EGD/COLONOSCOPY: [...] [place] Care Teams Report Specialist Relationship Specialty Start Date End Date Fariba Bella FNP PCP - General 11/14/22
--- OUTSIDE RECORDS SUMMARY | 2025-04-24 11:58 | XMS_ITS | Encounter Summary ---
Author Organization [employer] Address [address] [place] [address] [address] [place] [address] Care Team Providers Care Poleyard Supervisor Name Role Phone Tawny Dukes Primary Care Provider [phone] Shannon Berkowitz NP Primary Care Provider [phone] Reason for Referral * Imaging (Routine) - Closed Specialty Diagnoses / Procedures Referred By Dylan t Referred To Contact Radiology Diagnoses Abnormal CT scan, liver Procedures US Abdomen Complete Tawny Dukes FNP [address] [place] [address] Phone: tel: fax: [address] Phone: tel: fax: Referral ID Status Reason Start Date Expiration Date Visits Re quested Visits Authorized [id number] Closed 09/29/2023 09/28/2024 1 1 Encounter Details Date Type Department Care Team (Late st Contact Info) Description 09/29/2023 Orders Only [facility] [address] [place] [address] Tawny Dukes FNP [address] [place] [address] scan, liver (Primary Dx) Social [...] AM EDT Narrative 11/01/2023 11:16 AM EDT [address] [address] Ultrasound Report Signed Patient: Pro Howard MR#: [id number] : 1990 Acct:[id number] Age/Sex: 33 / M ADM Date: 10/30/23 Loc: HO.US Attending Dr: Tawny Dukes NP Ordering Physician: Tawny Dukes NP Date of Service: 10/30/23 Procedure(s): US abdomen complete Accession Number(s): [id number] cc: Tawny Dukes NP; Fariba Grewal BIRD TENDER EXAMINATION: US ABDOMEN COMPLETE CLINICAL INFORMATION: Liver [...] in OV> 11/01/23 1112 DD/ 1130 TD/TT: Sample Finisher: MANOHAR Procedure Note Donotuseinterpreter, Image - 11/01/[address] [address] Ultrasound Report Signed Patient: Pro HowardMR#: [id number] : 1990Acct:[id number] Age/Sex: 33 / MADM Date: 10/30/23 Loc: HO.US Attending Dr: Tawny Dukes NP Ordering Physician: Tawny Dukes NP Date of Service: 10/30/23 Procedure(s): US abdomen complete Accession Number(s): [id number] cc: Tawny Dukes NP; Fariba Grewal BIRD TENDER EXAMINATION: US ABDOMEN COMPLETE CLINICAL INFORMATION: Liver [...] in OV> 11/01/23 1112 DD/ 1130 TD/TT: Sample Finisher: MANOHAR us Tawny Dukes BIRD TENDER IMG US PROCEDURES Final Result documented in this encounter Visit Diagnoses Diagnosis Abnormal CT scan, liver- Primary documented in this encounter Additional Health Concerns Assessment Noted Time PHQ-9 Depression Total Score: 5 11/04/19 23 10:56 AM EDT documented as of this encounter Care Teams Poleyard Supervisor Relationship Specialty Start Date End Date Tawny Dukes FNP [address] [place] [address] PCP - General Family Medicine 09/11/23 02/08/24 Shannon Berkowitz NP [address] [place] [address] PCP - General Family Medicine 02/09/24 documented as of this encounter
--- OUTSIDE RECORDS SUMMARY | 2025-04-24 11:58 | XMS_ITS | Encounter Summary ---
Author Organization [employer] Address [address] [place] [address] [address] [place] [address] Care Team Providers Care Thread Spooler Name Role Phone Fariba Grewal Primary Care Provider Candace Fadumo Barroso TOP COATER Primary Care Provider [phone] Tawny Dukes CANDLE MAKING SUPERVISOR Primary Care Provider [phone] Shannon Berkowitz TOP COATER Primary Care Provider [phone] Encounter Details Date Type Department Care Team (Late st Contact Info) Description 12/26/2022 Telephone [facility] [address] [place] [address] Fraiba Grewal FNP Social History Tobacco Use Types [...] documented as of this encounter Care Teams Thread Spooler Relationship Specialty Start Date End Date Fariba Grewal FNP PCP - General Family Medicine 04/08/22 05/22/23 Fadumo Matthews NP [address] [place] [address] PCP - General Family Medicine 05/23/23 09/10/23 Tawny Dukes FNP [address] [place] [address] PCP - General Family Medicine 09/11/23 02/08/24 Shannon Berkowtiz NP [address] [place] [address] PCP - General Family Medicine 02/09/24 documented as of this encounter
--- OUTSIDE RECORDS SUMMARY | 2025-04-24 11:58 | XMS_ITS | Clinical Summary ---
Author Organization [employer] Address [address] [place] [address] 7 [place] [address] Care Team Providers Care Claim Approver Name Role Phone Shannon Berkowitz NP Primary Care Provider [phone] Allergies No known active allergies Medications prazosin (Minipress) 1 MG capsuleIndication s:Primary hypertension Take 1 capsule (1 mg) by mouth at bedtime. 90 capsule 3 3 Active B-12, Methylcobalamin, [address] ONE TABLET UNDER THE TONGUE AND ALLOW TO DISSOLVE FOR AT LEAST 30 SECONDS BEFORE SWALLOWING EVERY DAY 3 Active cholecalciferol (Vitamin D-3) 250 MCG (99892 UT) capsule TAKE 1 CAPSULE BY MOUTH [...] PRN Hypertensive disorder 03/06/2021 Overview (04/07/2023): Seen [facility] for HTN urgency in the [...] were ordered to [facility] Repeat labs ordered [facility], so he could get labs [...] age 15-16. Had biopsy and surgery at [facility] Last GI appt 12/09/21 PAST EGD/COLONOSCOPY: [...] Pediatric 05/27/1996 Hep B, adult 12/08/1995,11/08/1995 Hib ([facility]) 01/08/1992 IPV 11/08/1995, 2,02/20/1991,1990 Influenza injectable quadriv [...] C Ab (12/08/2022 12:41 PM EDT) Pathologist [facility] Hepatitis C Antibody Nonreactive Nonreactive [facility] Comment:Antibodies to HCV no t detected; does not exclude early acuteHCV infection. 12/08/2022 12:4 1 PM EDT 12/08/2022 12:41 PM EDT [facility] External Provider LAB BLO OD ORDERABLES Final Result Performing Organization Address City/State/[facility] Co de Phone Number [facility] [address] [place] [phone] * (ABNORMAL) Lipid Panel, Standard (11/03/2022 12:07 PM EDT) Cholesterol, Total 197 <200 mg/dL [facility] HDL Cholesterol 34(L) > OR = 40 mg/dL [facility] [place] [facility] Triglycerides 226(H) <150 mg/dL [facility] [place] [facility] Comment: If a non-fasting specimen was collected, consider repeat triglyceride testing on a fasting specimen if clinically indicated. Mateus et al. J. of Clin. Lipidol. 2015;9:129-169. LDL Cholesterol 127(H) mg/dL (calc) [facility] Comment: Reference range: <100 Desirable range <100 mg/dL for primary prevention; <70 mg/dL for patients with CHD or diabetic patients with > or = 2 CHD risk factors. LDL-C is now calculated using the Trinity calculation, which is a validated novel method providing better accuracy than the Friedewald equation in the estimation of LDL-C. Jerald BENOIT et al. SANDOR. 2013;310(19): 3336-9898 (http://education.[employer]/faq/LDK791) Chol/HDLC Ratio 5.8(H) <5.0 (calc) [facility] [place] [facility] Non-HDL Cholesterol 163(H) <130 mg/dL (calc) [facility] Comment: For patients with diabetes plus 1 major ASCVD risk factor, treating to a non-HDL-C goal of <100 mg/dL (LDL-C of <70 mg/dL) is considered a therapeutic option. Blood Venous blood specimen / Unknown 11/03/2022 12:07 PM EDT 11/03/2022 12:07 PM EDT Narrative [facility] - 11/04/2022 7:29 AM EDT FASTING:NO FASTING: NO us Fariba Grewal [facility] LAB BLOOD ORDERABLES Final Result Performing Organization Address City/[facility]/ZIP Co de Phone Number [facility] [address], [facility] [place] [address] [facility] [place] [facility] [address] [place] [address] * HIV 1/2 ANTIGEN/ANTIBODY,FOURTH GENERATION W/RFL (03/05/2021 2:55 PM EDT) [facility] HIV-1/2 ANTIGEN AND ANTIBODIES, 4TH GENERATION W/ REFLEX TNP [facility] Comment: TEST NOT PERFORMED No serum received. 03/05/2021 2:55 PM EDT us Maria G Hammond [employer] LAB BLOOD ORDERABLES Final Resu lt [facility] [address] from Last 3 Months or Most Recently Relevant to Health Maintenance Insurance [facility] Care Teams Claim Approver Relationship Specialty Start Date End Date Shannon Berkowitz NP [address] [place] [phone] PCP - General Family Medicine 02/09/24
== END 2025-04-24 10:59 | disposition home or self-care (01) ==
LOC: HO.HKA 09:59
PROVIDERS: PCP Nurse Practitioner Family; Visit Provider Internal Medicine Hypertension Specialist
DX: I10 Essential (primary) hypertension (principal)
CPT/HCPCS: 99214

== ENCOUNTER → 2025-04-24 09:58 | Outpatient (BNVA) | payer OTHER, SELFPAY | PROVIDERS: PCP Nurse Practitioner Family; Visit Provider Internal Medicine Hypertension Specialist | DX: I10 Essential (primary) hypertension (principal) | CPT/HCPCS: 99212 ==

== ENCOUNTER 2025-06-23 10:11 | Outpatient (AMB) | payer OTHER, SELFPAY ==
[2025-06-23 10:23] VITALS: BP 130/78; PULSE 69; TEMP 36.7; O2SAT 97; BMI 32.5
--- NOTE | 2025-06-23 10:23 | AM.OFFWIN_ITS ---
Intake Vital Signs 06/23/25 10:23 Height 5 ft 8 in Weight 214 lb BMI 32.5 BP 130/78 Blood Pressure Location Rt brachial Position Sitting Pulse 69 Pulse Source Pulse Oximeter Temp 98.0 F Temp Source Oral Pulse Oximetry (%) 97 Oxygen Delivery Method Room Air Intake Visit Reasons: EP Right eye irritation Intake Note: Patient presents with c/o right eye irritation - ? stye - x4 days. Patient Tobacco Use Status: Never used Tobacco Allergies No Known Allergies Allergy (Verified 06/23/25 10:26) HPI HPI Comments History of Present Illness Details History of Present Illness - The patient is a 34-year-old male pres enting with an eye infection. - The condition began on Monday night wi th a small lesion on the right lower eyelid that progressed to a larger area of concern. - The patient reports crusting and disch arge from the lesion, particularly after applying warm compresses. - There is no history of blurry or doubl e vision, although the patient notes some watery sensation when closing the left eye. - The patient does not have an eye docto r and uses [employer] for glasses. - He denies any eye trauma, pain, cold s ymptoms, or vision changes. - He does not wear contact lens. Physical Exam General: Cooperative, healthy appearing, comfortable, no acute distress and well developed Orientation: Patient oriented x3 Eyes: Pupils are 2 mm in size. PERRLA, EOMI. Sclera is pink on the right and conjunctiva is pink. Small, raised tender lesion noted on the bottom of the right outer eyelid with tiny pustules noted and erythema. No discharge noted. Swelling noted under the right eye. Neck: Normal visual inspection and Yes full ROM Respiratory: Normal respiratory effort and able to speak in complete sentences. Clear to auscultation bilaterally Cardiovascular: Regular rate and rhythm. Normal S1 and S2 Skin: No rashes or lesions noted Patient was informed and verbally consented to the use of an ambient scribe for clinic note documentation during this visit. [facility] Medical History (Updated 03/10/25 @ 12:37 by YESSY Potts) Hypertension Depression Anxiety PTSD (post-traumatic stress disorder) GERD (gastroesophageal reflux disease) Surgical History History of incision and drainage (~09/2024) History of esophageal surgery History of esophagogastroduodenoscopy (EGD) Family History Maternal Grandmother Diabetes Mother Chronic mental illness Social History Housing: Apartment Alcohol intake: current Alcohol intake frequency: holidays/special occasions only Patient Tobacco Use Status: Never used Tobacco e-Cigarette/Vaping Use: Never Used service: No Current occupational status: employed 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 Cognitive needs: No Hearing needs: Yes Vision needs: Yes Review of Systems Const All systems reviewed & are unremarkable except as noted in HPI and below Physical Exam Vital Signs: Last Vital Signs Temp 98.0 F 06/23/25 10:23 Pulse 69 06/23/25 10:23 BP 130/78 06/23/25 10:23 Pulse Ox 97 06/23/25 10:23 Oxygen Delivery Method Room Air 06/23/25 10:23 BMI result Body Mass Index 32.5 Assessment & Plan Assessment & Plan (1) Hordeolum externum of right lower eyelid: Code(s): H00.012 - Hordeolum externum right lower eyelid (2) Cellulitis: Code(s): L03.90 - Cellulitis, unspecified Qualifiers: Site of cellulitis: periorbital Laterality: right Qualified Code(s): L03.213 - Periorbital cellulitis Plan Most likely hordeolum with a cellulitis plan - Prescribed oral antibiotics and eye drops. - Advised warm compresses to the affected area. - Instructed to monitor for signs of worsening, such as fever or increased swelling, and to seek further medical attention if symptoms do not improve within 24 hours of antibiotic treatment. Medications: New amoxicillin-pot clavulanate 875-125 mg 1 tab PO Q12H 14 tabs 0RF ciprofloxacin HCl 0.3% 1 - 2 drops into the right eye four times a day 5 mL 0RF 5 days Coding Level of Care Code Est Pt Level 3 (23415) Diagnoses Hordeolum externum of right lower eyelid H00.012 Periorbital cellulitis of right eye L03.213 Site of cellulitis: periorbital Laterality: right
--- OUTSIDE RECORDS SUMMARY | 2025-06-23 11:52 | XMS_ITS | Encounter Summary ---
Author Organization [employer] Address [address] [place] [address] 7 [place] [address] Care Team Providers Care Box Truck Driver Name Role Phone Tawny Dukes Primary Care Provider [phone] Shannon Berkowitz NP Primary Care Provider [phone] Reason for Referral * Imaging (Routine) - Closed Specialty Diagnoses / Procedures Referred By Dylan t Referred To Contact Radiology Diagnoses Abnormal CT scan, liver Procedures US Abdomen Complete Tawny Dukes FNP [address] [place] [address] Phone: tel: fax: [address] Phone: tel: fax: Referral ID Status Reason Start Date Expiration Date Visits Re quested Visits Authorized [id number] Closed 09/29/2023 09/28/2024 1 1 Encounter Details Date Type Department Care Team (Late st Contact Info) Description 09/29/2023 Orders Only [facility] [address] [place] [address] Tawny Dukes FNP [address] [place] [address] scan, liver (Primary Dx) Social [...] AM EDT Narrative 11/01/2023 11:16 AM EDT [address] [address] Ultrasound Report Signed Patient: Pro Howard MR#: [id number] : 1990 Acct:[id number] Age/Sex: 33 / M ADM Date: 10/30/23 Loc: HO.US Attending Dr: Tawny Dukes NP Ordering Physician: Tawny Dukes NP Date of Service: 10/30/23 Procedure(s): US abdomen complete Accession Number(s): [id number] cc: Tawny Dukes NP; Fariba Grewal EMERGENCY DEPARTMENT AIDE EXAMINATION: US ABDOMEN COMPLETE CLINICAL INFORMATION: Liver [...] in OV> 11/01/23 1112 DD/ 1130 TD/TT: Impregnating Machine Operator: MANOHAR Procedure Note Donotuseinterpreter, Image - 11/01/[address] [address] Ultrasound Report Signed Patient: Pro HowardMR#: [id number] : 1990Acct:[id number] Age/Sex: 33 / MADM Date: 10/30/23 Loc: HO.US Attending Dr: Tawny Dukes NP Ordering Physician: Tawny Dukes NP Date of Service: 10/30/23 Procedure(s): US abdomen complete Accession Number(s): [id number] cc: Tawny Dukes NP; Fariba Grewal EMERGENCY DEPARTMENT AIDE EXAMINATION: US ABDOMEN COMPLETE CLINICAL INFORMATION: Liver [...] in OV> 11/01/23 1112 DD/ 1130 TD/TT: Impregnating Machine Operator: MANOHAR us Tawny Dukes EMERGENCY DEPARTMENT AIDE IMG US PROCEDURES Final Result documented in this encounter Visit Diagnoses Diagnosis Abnormal CT scan, liver- Primary documented in this encounter Additional Health Concerns Assessment Noted Time PHQ-9 Depression Total Score: 5 11/04/19 23 10:56 AM EDT documented as of this encounter Care Teams Box Truck Driver Relationship Specialty Start Date End Date Tawny Dukes FNP [address] [place] [address] PCP - General Family Medicine 09/11/23 02/08/24 Shannon Berkowitz NP [address] [place] [address] PCP - General Family Medicine 02/09/24 documented as of this encounter
--- OUTSIDE RECORDS SUMMARY | 2025-06-23 11:52 | XMS_ITS | Clinical Summary ---
Author Organization [facility] Facility Address [address] [place] [address] Care Team Providers Care Centrifugal Screen Tender Name Role Phone Fariba Bella Primary Care Provider [phone] Allergies No known active allergies Medications amLODIPine [...] age 15-16. Had biopsy and surgery at [facility] Last GI appt 12/09/21 PAST EGD/COLONOSCOPY: 2007 EGD was performed by Dr. Borges: Erythema and friability, esophagitis with erosions/exudate involving the mucosa of the esophagus with contact bleeding. Biopsies showed focal active esophagitis and erosions. Gastric biopsies were negative for Helicobacter pylori. Repeat EGD 09/13/21 Depressive disorder 03/06/2021 04/04/2023 Hypertensive disorder 03/06/2021 04/04/2023 Post-traumatic stress disorder 03/06/2021 0 04/04/2023 Social History Tobacco Use Types Packs/Day Years [...] Insurance Medicaid [place] Care Teams Centrifugal Screen Tender Relationship Specialty Start Date End Date Fariba Bella FNP PCP - General 11/14/22
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
--- OUTSIDE RECORDS SUMMARY | 2025-06-23 11:53 | XMS_ITS | Encounter Summary ---
Author Organization [employer] Address [address] [place] [address] [address] [place] [address] Care Team Providers Care Talent Assistant Name Role Phone Fariba Grewal Primary Care Provider Candace Fadumo Barroso AIR TESTER Primary Care Provider [phone] Tawny Dukes SLAB LIFTING SUPERVISOR Primary Care Provider [phone] Shannon Berkowitz AIR TESTER Primary Care Provider [phone] Encounter Details Date Type Department Care Team (Late st Contact Info) Description 12/26/2022 Telephone [facility] [address] [place] [phone] Fariba Grewal FNP Social History Tobacco Use [...] documented as of this encounter Care Teams Talent Assistant Relationship Specialty Start Date End Date Fariba Grewal FNP PCP - General Family Medicine 04/08/22 05/22/23 Fadumo Matthews NP [address] [place] [address] PCP - General Family Medicine 05/23/23 09/10/23 Tawny Dukes FNP [address] [place] [address] PCP - General Family Medicine 09/11/23 02/08/24 Shannon Berkowitz NP [address] [place] [address] PCP - General Family Medicine 02/09/24 documented as of this encounter
== END 2025-06-23 11:35 | disposition home or self-care (01) ==
PROVIDERS: PCP Nurse Practitioner Family; Visit Provider Physician Assistant Medical
DX: H00.012 Hordeolum externum right lower eyelid (principal); L03.213 Periorbital cellulitis

== ENCOUNTER → 2025-06-23 10:11 | Outpatient (BNVA) | payer OTHER, SELFPAY | PROVIDERS: PCP Nurse Practitioner Family; Visit Provider Physician Assistant Medical | DX: H00.012 Hordeolum externum right lower eyelid (principal); L03.213 Periorbital cellulitis | CPT/HCPCS: 99212 ==